=== PATIENT | male | born 1970 | race Caucasian/White ===

== ENCOUNTER 2018-01-07 14:21 | Emergency (ER) | payer SELFPAY ==
[2018-01-07 14:22] VITALS: BP 149/79; PULSE 66; RESP 16; TEMP 36.7; O2SAT 99; BMI 35.3
--- NOTE | 2018-01-07 14:39 | RAD_ITS ---
STUDY: X-RAY CHEST REASON FOR EXAM: Male, 47 years old. Chest pain TECHNIQUE: Single frontal view of the chest. COMPARISON: March 23, 2012 FINDINGS: The lungs are clear and expanded. There is no demonstrated pleural abnormality. Normal size heart. Normal mediastinum and ora. Normal visualized pulmonary arteries. Normal visualized aortic arch and descending thoracic aorta. Normal visualized thoracic spine. Normal visualized ribs, clavicles, and shoulders. There is no demonstrated abnormality of the visualized soft tissue structures of the upper abdomen. RAD/Chest 1 View (Portable) IMPRESSION: Normal x-ray examination of the chest. Electronically Signed: Nando Pacheco MD at 15:49 EST , Service support ,
--- NOTE | 2018-01-07 14:39 | EKG12_ITS ---
Test Reason : CP Blood Pressure : / mmHG Vent. Rate : 055 BPM Atrial Rate : 055 BPM P-R Int : 192 ms QRS Dur : 092 ms QT Int : 414 ms P-R-T Axes : 037 045 045 degrees QTc Int : 396 ms Sinus bradycardia Otherwise normal ECG Confirmed by ZAHIRA URBINA, RALPH ([id number]), scientific publications editor ISRA ESCAMILLA ([id number] on 01/10/2018 3:54:50 PM Referred By: KELLY Confirmed By:RALPH RODRIGES MD
--- NOTE | 2018-01-07 14:49 | ED.VISSUMM ---
- ER Visit Summary Date of Service: 01/07/18 Chief Complaint: [] Left pectoral pain radiating to the right chest on off for 2 days History of Present Illness: The patient is a 47 M [] patient reports really no significant past history he does smoke 2 packs a day and is a family history of heart disease. He indicates he has no history of heart disease. Describes a cramp that occurs to the left chest and then radiates across to the right chest that occurs intermittently nothing triggers at this cramp nothing makes it better or worse it just lasts for a very brief period of time and then resolve spontaneously sometimes he feels if his chest is being pushed from right to left. He has no history of [place] PE DVT he has had no fever no cough no 6 paresthesias bowel bladder habits been normal He does have high cholesterol but he is not on any statins as they made him sick, he had a prior nuclear stress test and other tests with Dr. Mederos he was told his heart is healthy and he has no history of heart disease he is resting company no distress now with no symptoms Physical Examination: [] Blood pressure is 149/79 the rest of his vitals are unremarkable see those reports he is resting comforting the bed he takes his hand and draws her from the left upper pectoral area and feel indicates that there is a cramp sensation in moves to the right upper pectoral area when the symptoms occur they have not occurred now he cannot trigger them now I cannot trigger them by movement or palpation he is in no distress his head neck chest exam unremarkable lungs are clear heart tones are normal palpation the chest wall is unremarkable the abdomen soft nontender he is awake alert moving all 4 pulses are symmetric upper and lower extremities unremarkable without cyanosis clubbing or edema neurologically is normal Test Results: [] Emergency Department Course and Treatment: [] EKG shows a sinus rhythm nothing acute screening labs are obtained and are generally unremarkable see those reports on reevaluation is resting comfortably has no recurrence of his symptoms, I explained that the exact etiology is unclear we discussed inpatient versus outpatient management the patient state he did not wish to be admitted under any circumstance he wanted to go home he preferred outpatient management I explained he would need to follow-up with all of 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 It may contain incorrect words, spelling, and punctuation that were not noted in review of the chart prior to signing ED Disposition - Plan for ED Patient: Chief Complaint: Chest Other Referrals: Kyle Blevins MD [Primary Care Provider] -
[2018-01-07] MEDS: 0.9% Normal Saline 1,000 ML 150 ML IV (14:55)
[2018-01-07] MEDS: Aspirin 81 MG TAB.CHEW 324 MG PO (14:55)
[2018-01-07 14:58] VITALS: O2SAT 100
[2018-01-07 15:27] LABS: Absolute Lymphocyte Count 1.63 X10^3/ul (0.83-4.51); Absolute Neutrophil Count 4.1 X10^3/uL (2.0-7.7); Basophil# 0.02 X10^3/uL; Basophil% 0.3 % (0-1); Eosinophil# 0.11 X10^3/uL; Eosinophils% 1.7 % (0-5); Hematocrit 42.6 % (40-54); Lymphocyte # 1.63 X10^3/ul (4.0); Lymphocyte % 25.3 % (19-41); Mean Corp Hgb Conc 32.9 g/gl (32-36); Mean Corpuscular Hgb 29.5 pg (27.0-32.0); Mean Corpuscular Volume 89.7 fL (80-94); Mean Platelet Vol. 10.6 fl (6.2-12.0); Monocyte# 0.56 X10^3/uL; Monocyte% 8.7 % (0-10); Neutrophil % 63.7 % (47-70); Platelet Count 204 K/mm3 (150-450); RBC Distribution Width CV 13.8 % (11.6-14.6); RBC Distribution Width SD 45.4 fl (35.1-43.9); Red Blood Count 4.75 M/mm3 (4.6-6.2); White Blood Count 6.4 K/mm3 (4.4-11.0)
[2018-01-07 15:30] LABS: POSITIVE COUNT NO; POSITIVE DIFFERENTIAL NO; POSITIVE MORPHOLOGY NO
[2018-01-07 15:33] LABS: Anion Gap 9 (5-15); BUN 12 mg/dL (7-18); BUN/Creat Ratio 13.8 RATIO (10-20); Calcium,Total 8.4 mg/dL (8.5-10.1); Chloride 106 mmol/L (98-107); Creatinine, Serum 0.87 mg/dL (0.70-1.30); EST Glomerular Filtration Rate 99 mL/min (>60); Est Glom Filt Rate - Afr Amer 120 mL/min (>60); Estimated Creatinine Clearance 106.05 ml/min; Glucose 95 mg/dL (74-106); Sodium Level 139 mmol/L (136-145)
--- NOTE | 2018-01-07 16:21 | ED.DEP ---
ED Disposition - Plan for ED Patient: Chief Complaint: Chest Other Instructions: ED Chest Pain Atypical Unkn Cause Referrals: Kyle Blevins MD [Primary Care Provider] - Chin Mederos MD [STAFF PHYSICIAN] -
[2018-01-07 16:33] VITALS: BP 124/68; PULSE 72; RESP 18; O2SAT 99
== END 2018-01-07 16:34 | disposition home or self-care (01) ==
LOC: ED 14:56
PROVIDERS: Emergency Provider Emergency Medicine; Family Provider Family Medicine; PCP Family Medicine
DX: R07.9 Chest pain, unspecified (principal); E78.00 Pure hypercholesterolemia, unspecified; F17.200 Nicotine dependence, unspecified, uncomplicated
CPT/HCPCS: 71045; 80048; 84484; 85025; 93005; 96360; 96361; 99285; J7030; A4216; J2405

== ENCOUNTER → 2018-02-15 06:38 | Outpatient (CLI) | payer SELFPAY ==
[2018-01-18 12:33] VITALS: BMI 34.8
--- NOTE | 2018-02-15 12:50 | STRESSREP ---
Stress Test Report Exercise stress test. 47-year-old lady with a history of atypical chest pain. Stress protocol: Resting EKG demonstrates normal sinus rhythm with a rate of 75 bpm T wave inversion noted in lead III. Resting blood pressure is 146/92 mmHg. The patient exercised according to regular [facility] protocol for total duration of 6 minutes the maximum heart rate attained was 141 bpm which was 82% of maximum predicted heart rate the maximum workload was 7 metabolic equivalents. The patient maintained sinus rhythm throughout the recording. At rest there were no ST or T wave changes noted suggest ischemia peak exercise upsloping ST changes only were noted with normally the criteria for ischemia. The resting blood pressure 146/92 with a peak blood pressure of 210/70 mmHg. No clinical angina was noted. Myocardial perfusion protocol. 14.7 mCi of technetium 99m sestamibi was injected at rest. Patient exercised for total duration of 6 minutes attaining 7 metabolic equivalents at peak exercise 44.6 mCi of technetium 99m sestamibi was injected stress images were obtained stress and rest images were reconstructed and compared in the short axis vertical long horizontal long axis. Gated images were also obtained per Perfusion SPECT analysis: Review of the stress images demonstrate normal uptake of tracer noted in all areas of myocardium. The resting images similarly demonstrate normal uptake of tracer noted in all areas myocardium. No perfusion defect is noted to suggest ischemia and no reversibility is noted. Gated SPECT analysis: The gated ejection fraction is noted to be 62%. Conclusion: Normal exercise myocardial perfusion stress test at a moderate workload. Preserved ejection fraction.
--- OUTSIDE RECORDS SUMMARY | 2018-05-19 07:41 | XMS RPT_ITS ---
:1970 Author Organization OHIP Care Team Providers Name Role Phone Tawanna MENDOZA (ALVAREZ-C) Attending Unavailable SHEREE YOUNGBLOOD (PHARMACEUTICAL SERVICE REPRESENTATIVE) Referring Unavailable Tawanna MENDOZA (PANathanielC) Attending Unavailable Tawanna MENDOZA (PANathanielC) Referring Unavailable Tawanna MENDOZA (PANathanielC) Attending Unavailable PINKY BLEVINS Referring Unavailable Tawanna MENDOZA (PA-C) Attending Unavailable Tawanna MENDOZA (PA-C) Attending Unavailable Nicole, Daniel Attending Unavailable Nicole, [place] Referring Unavailable Pinky Blevins Primary Care Unavailable Nicole, [place] Attending Unavailable Nicole, Daniel Referring Unavailable Casey Tang Attending Unavailable Pinky Blevins Primary Care Unavailable Genesis Greene Attending Unavailable Nicole, Daniel Attending Unavailable Pinky Blevins Referring Unavailable PROBLEMS PROBLEMS DATE TYPE CONDITION / CODE ATTENDING STATUS SOURCE 03/09/2018 Unknown R94.31 - Abnormal Nicole, [place] Active [facility] electro[facility]ogram [facility] [ECG] [EKG] / Hospital R94.31(ICD-10) Repository 03/09/2018 Unknown R07.9 - Chest pain, NicoleJacekDaniel Active [facility] unspecified / Community R07.9(ICD-10) Hospital Repository 01/18/2018 Unknown E78.5 - Nicole, Daniel Active [facility] Hyperlipidemia, Community unspecified / Hospital E78.5(ICD-10) Repository 01/18/2018 Unknown F17.200 - Nicotine Nicole, [place] Active [facility] dependence, Community unspecified, Hospital uncomplicated / Repository F17.200(ICD-10) 12/06/2017 Active Mixed hyperlipidemia / NA Active [facility] E78.2(ICD-10) Clinic [facility] [place] Repository PROCEDURES PROCEDURES No Procedure Records FoundRESULTS RESULTS STRESS REPORT Observed: 02/15/2018 Status: F Source: [place] 12:53 PM [facility] Cardiovascular Services [address] [place] [address] MR#: [id number] Acct: [id number] Name: MARCO ABEL Rep #: [id number] : 1970 47 From: Daniel Rivera MD Primary Care: Pinky Blevins MD Status: REG CLI Ordering Dr: Sex: M C Stress Test Report Exercise stress test. 47-year-old lady with a history of atypical chest pain. Stress protocol: Resting EKG demonstrates normal sinus rhythm with a rate of 75 bpm T wave inversion noted in lead III. Resting blood pressure is 146/92 mmHg. The patient exercised according to regular [facility]os[facility] protocol for total duration of 6 minutes the maximum heart rate attained was 141 bpm which was 82% of maximum predicted heart rate the maximum workload was 7 metabolic equivalents. The patient maintained sinus rhythm throughout the recording. At rest there were no ST or T wave changes noted suggest ischemia peak exercise upsloping ST changes only were noted with normally the criteria for ischemia. The resting blood pressure 146/92 with a peak blood pressure of 210/70 mmHg. No clinical angina was noted. Myocardial perfusion protocol. 14.7 mCi of technetium 99m sestamibi was injected at rest. Patient exercised for total duration of 6 minutes attaining 7 metabolic equivalents at peak exercise 44.6 mCi of technetium 99m sestamibi was injected stress images were obtained stress and rest images were reconstructed and compared in the short axis vertical long horizontal long axis. Gated images were also obtained per Perfusion SPECT analysis: Review of the stress images demonstrate normal uptake of tracer noted in all areas of myocardium. The resting images similarly demonstrate normal uptake of tracer noted in all areas myocardium. No perfusion defect is noted to suggest ischemia and no reversibility is noted. Gated SPECT analysis: The gated ejection fraction is noted to be 62%. Conclusion: Normal exercise myocardial perfusion stress test at a moderate workload. Preserved ejection fraction. 02/15/18 1253 <Electronically signed by Daniel Rivera MD> Date Daniel Rivera MD CC: Daniel Rivera MD; Pinky Blevins MD Date Dictated: 02/15/181249 Date Transcribed: 02/15/181249 Cellar Packer: CO Signed PROGRESS Observed: 01/31/2018 Status: COMPLETED Source: [place] 12:23 PM [facility] [place] REPOSITORY O ID: [id number] Author: Tawanna Feliciano (AsifC) Reji Service: (none) Author Type: Physician Automatic Toe Laster Type: Progress Notes Filed: 01/31/2018 5:29 PM Note Text: 47 year old male with c/o 1. Getting some tension in upper ler shoulder again. Wants to have OMT. 2. Seeing counselor [place] [facility]. Wants to reduce use of buspar. On medication 5+ years. HISTORIES FAMILY HISTORY Problem Relation Age of Onset - other (rheumatoid arthritis [Other]) Mother - Hypertension Father PAST MEDICAL HISTORY Diagnosis Date - Heat stroke 2007 resolved - Hyperlipidemia - Palpitations PAST SURGICAL HISTORY Procedure Laterality Date - PAST SURGICAL HISTORY OF hernia repair, bilateral inguinal Social History Marital status: Spouse name: Years of education: Number of children: Occupational History Occupation Employer Comment unemployed Social History Main Topics Smoking status: Current Every Day Smoker Packs/day: 1.50 Years: 25.00 Smokeless tobacco: Never Used Alcohol use: No Drug use: Yes Comment: hx of occasional marijuana, has stopped since admission to hospital ACTIVE PROBLEM LIST Hyperlipidemia Anxiety Current Outpatient Prescriptions: cholecalciferol, Vitamin D3, (VITAMIN D3) 50,000 unit cap capsule Take 1 capsule by mouth once each week. Disp: 4 capsule Rfl: 3 lovastatin (MEVACOR) 10 mg tablet Take 1 tablet by mouth daily at bedtime. For cholesterol. Disp: 90 tablet Rfl: 0 hydrOXYzine pamoate (VISTARIL) 25 mg capsule Take 1 capsule by mouth three times daily as needed. Disp: 30 capsule Rfl: 1 busPIRone (BUSPAR) 10 mg tablet 1.5 po at noon, 2 po in am and at hs Disp: 165 tablet Rfl: 1 No current facility-administered medications for this visit. There are no preventive care reminders to display for this patient. EXAM: BP 120/70 Pulse 84 Temp (!) 35.6 ?C (96 ?F) (Tympanic) Resp 16 Wt 111.6 kg (246 lb) BMI 35.81 kg/m? Pleasant overweight adult man in no acute distress. Alert and oriented all spheres. Normal affect and cognition. Speech normal. No deficits to learning or comprehension. Skin warm, dry, pink to lips and nailbeds. Normal turgor. Respirations regular and unlabored. Chest CTA. HRRR without murmur or gallop. Chest wall tender left Coracobrachialis. TTPs in upper back/ thoracic Extrem: no clubbing, cyanosis, edema. Extremities are warm and pink with prompt capillary refill. OMT: myofascial release TTPS, HVLA to thoracic segments with relief. ASSESSMENT/PLAN: 1. Somatic dysfunction of spine, thoracic - ICD9: 739.2, ICD10: M99.02 (primary diagnosis) Ice/ moist heat, lineaments, OTC analgesics as needed,. Stretching and posture reviewed. F/U prn 2. Palpitation - ICD9: 785.1, ICD10: R00.2 - HYDROXYZINE PAMOATE 25 MG CAPSULE 3. Anxiety - ICD9: 300.00, ICD10: F41.9 - BUSPIRONE 10 MG TABLET wants to wean: 5mg per week. If worsening with anxiety increase. Has f/u with psychologist. F/u prn FREDERIC Alex Observed: 01/31/2018 Status: COMPLETED Source: [place] 10:20 AM [facility] REPOSITORY [facility] MARCO ABEL ([id number]) 1970 M Date Time Provider Department 01/31/18 10:20 AM Tawanna MENDOZA) [place] During your visit today, we recorded the following information about you: Temperature Pulse Respiration Blood pressure 96 degrees 84/minute 16/minute 120/70 Weight 111.6 kg M Braden Mendoza PA-C 01/31/2018 5:29 PM Signed 47 year old male with c/o 1. Getting some tension in upper ler shoulder again. Wants to have OMT. 2. Seeing counselor [place] [facility]. Wants to reduce use of buspar. On medication 5+ years. HISTORIES FAMILY HISTORY Problem Relation Age of Onset - other (rheumatoid arthritis [Other]) Mother - Hypertension Father PAST MEDICAL HISTORY Diagnosis Date - Heat stroke 2007 resolved - Hyperlipidemia - Palpitations PAST SURGICAL HISTORY Procedure Laterality Date - PAST SURGICAL HISTORY OF hernia repair, bilateral inguinal Social History Marital status: Spouse name: Years of education: Number of children: Occupational History Occupation Employer Comment unemployed Social History Main Topics Smoking status: Current Every Day Smoker Packs/day: 1.50 Years: 25.00 Smokeless tobacco: Never Used Alcohol use: No Drug use: Yes Comment: hx of occasional marijuana, has stopped since admission to hospital ACTIVE PROBLEM LIST Hyperlipidemia Anxiety Current Outpatient Prescriptions: cholecalciferol, Vitamin D3, (VITAMIN D3) 50,000 unit cap capsule Take 1 capsule by mouth once each week. Disp: 4 capsule Rfl: 3 lovastatin (MEVACOR) 10 mg tablet Take 1 tablet by mouth daily at bedtime. For cholesterol. Disp: 90 tablet Rfl: 0 hydrOXYzine pamoate (VISTARIL) 25 mg capsule Take 1 capsule by mouth three times daily as needed. Disp: 30 capsule Rfl: 1 busPIRone (BUSPAR) 10 mg tablet 1.5 po at noon, 2 po in am and at hs Disp: 165 tablet Rfl: 1 No current facility-administered medications for this visit. There are no preventive care reminders to display for this patient. EXAM: BP 120/70 Pulse 84 Temp (!) 35.6 ?C (96 ?F) (Tympanic) Resp 16 Wt 111.6 kg (246 lb) BMI 35.81 kg/m? Pleasant overweight adult man in no acute distress. Alert and oriented all spheres. Normal affect and cognition. Speech normal. No deficits to learning or comprehension. Skin warm, dry, pink to lips and nailbeds. Normal turgor. Respirations regular and unlabored. Chest CTA. HRRR without murmur or gallop. Chest wall tender left Coracobrachialis. TTPs in upper back/ thoracic Extrem: no clubbing, cyanosis, edema. Extremities are warm and pink with prompt capillary refill. OMT: myofascial release TTPS, HVLA to thoracic segments with relief. ASSESSMENT/PLAN: 1. Somatic dysfunction of spine, thoracic - ICD9: 739.2, ICD10: M99.02 (primary diagnosis) Ice/ moist heat, lineaments, OTC analgesics as needed,. Stretching and posture reviewed. F/U prn 2. Palpitation - ICD9: 785.1, ICD10: R00.2 - HYDROXYZINE PAMOATE 25 MG CAPSULE 3. Anxiety - ICD9: 300.00, ICD10: F41.9 - BUSPIRONE 10 MG TABLET wants to wean: 5mg per week. If worsening with anxiety increase. Has f/u with psychologist. F/u prn FREDERIC Alex PA-C 01/31/2018 12:35 PM Signed Decrease Buspar 5mg every 5-7 days. Rest in a comfortable position. Avoid activities or positions which increase pain. Please review the sheet of exercises provided for stretching. No over head lifting, or extended arm pushing or pulling over the next few days. Moist heat generally also helps muscles to relax, You may apply it for 10-15 minutes every few hours if needed. Ice may also help similarly to block pain Call with a progress report over the next few days. Referring Provider: SELF [200] Allergies As of Date: 01/31/2018 Noted Allergy Reaction CITALOPRAM 05/12/2012 14 - Other: See Comments Comments: Chest discomfort PENICILLINS 03/04/2012 11 - Vomiting Date Reviewed: 01/31/2018 Reviewed by: Caty Fagan LPN - Fully Assessed Reason for Visit: Medication Follow-up [270] Back Pain [12] Cmt: upper back left shoulder Primary Visit Diagnosis:Somatic dysfunction of spine, thoracic [M99.02] Other Visit Diagnoses:Palpitation [R00.2] Anxiety [F41.9] Order(s):hydrOXYzine pamoate (VISTARIL) 25 mg capsuleTake 1 capsule by mouth three times daily as needed.Disp: 30 capsuleRfl: 1 busPIRone (BUSPAR) 10 mg tablet1.5 po at noon, 2 po in am and at hsDisp: 165 tabletRfl: 1 Prescriptions as of 01/31/2018 Sig: HYDROXYZINE PAMOATE 25 MG CAP* Take 1 capsule by mouth three* BUSPIRONE 10 MG TABLET 1.5 po at noon, 2 po in am an* CHOLECALCIFEROL (VITAMIN D3) * Take 1 capsule by mouth once * LOVASTATIN 10 MG TABLET Take 1 tablet by mouth daily * Problem List As Of Date 01/31/2018 Noted Resolved Hyperlipidemia [E78.5] INVALID FOR* Impingement syndrome of left shoulder [M75.42] INVALID FOR*04/01/2016 Anxiety [F41.9] INVALID FOR* Other instructions from your clinician: Decrease Buspar 5mg every 5-7 days. Rest in a comfortable position. Avoid activities or positions which increase pain. Please review the sheet of exercises provided for stretching. No over head lifting, or extended arm pushing or pulling over the next few days. Moist heat generally also helps muscles to relax, You may apply it for 10-15 minutes every few hours if needed. Ice may also help similarly to block pain Call with a progress report over the next few days. Prescriptions ordered this encounter Disp Refills Start End HYDROXYZINE PAMOATE 25 MG CAPSULE 30 c* 1 01/31/2018 Route: ORAL Sig: Take 1 capsule by mouth three times daily as needed. BUSPIRONE 10 MG TABLET 165 * 1 01/31/2018 Si.5 po at noon, 2 po in am and at hs Medications Discontinued During This Encounter traZODone (DESYREL) 50 mg tablet 30 t* 1 01/12/2018 01/31/2018 Route: ORAL Sig: Take 1 tablet by mouth daily at bedtime. Patient not taking: Reported on 01/17/2018 Disc: Reason for discontinue is not on file. hydrOXYzine pamoate (VISTARIL) 25 mg* 30 c* 1 12/05/2017 01/31/2018 Route: ORAL Sig: Take 1 capsule by mouth three times daily as needed. Disc: Reason for discontinue is not on file. busPIRone (BUSPAR) 10 mg tablet 165 * 1 12/05/2017 01/31/2018 Si.5 po at noon, 2 po in am and at hs Disc: Reason for discontinue is not on file. Encounter Status:Closed by Tawanna MENDOZA PA-C on 01/31/18 CARDIOLOGY VISIT Observed: 01/18/2018 Status: F Source: [place] REPORT 1:31 PM [facility] [address] [place] [address] OFFICE VISIT Date of Service: 01/18/18 MR#: [id number] Acct: [id number] Name: MARCO ABEL Rep #: [id number] : 1970 Provider: Daniel Rivera MD Age/Sex: 47/M Location: [facility] Status: Signed HPI HPI Chief Complaint: Initial visit Details: MARCO ABEL, is a 47 M who presents to the office today for an initial visit. He presents for evaluation of his cardiac status and to consider a stress test with imaging. He had initially seen my colleague in 2011 after he had presented with chest discomfort. During that visit he had undergone exercise stress testing on the [place] protocol where he exercised 9 minutes and 14 seconds achieving 82% of maximum predicted heart rate and a workload of 10 metabolic equivalents. It was thought based on that test that he did not have any significant cardiac symptomatology he however recommended a cardiac CT angiogram which was performed which demonstrated a normal left main coronary artery left anterior descending artery with mixed soft and calcified eccentric nonobstructive plaque, left anterior descending artery with the same, left circumflex artery with the same and the right coronary artery with soft plaque and a ramus intermedius with mixed soft and calcified eccentric plaque. It was thought that this did not demonstrate significant ischemia. He had some chest discomfort recently which he thought was secondary to a torn muscle. He underwent a regular exercise stress test where he exercised to 8.4 metabolic equivalents but developed hypertensive response to exercise with a blood pressure of 234/90 mmHg. EKG changes were noted though no chest pain was noted. He also attained 81% of the max impacted heart rate. It was therefore determined that he should have this investigated further. Previous echocardiograms performed in 2013 demonstrated preserved ejection fraction of 60%. His physical exam today demonstrates clear lung kessler regular rate and rhythm no pedal edema his blood pressure is under excellent control. Intake Vital Signs01/18/18 Height 5 ft 10 in Intake Visit Reasons: PCP ref'd - needs stressed, CP Allergies citalopram Allergy (Intermediate, Verified 01/18/18 12:34) Unknown Penicillins Adverse Reaction (Verified 01/18/18 12:34) Upset Stomach Medications Hydroxyzine Pamoate 25 mg PO TID PRN PRN 01/07/18 [History Confirmed 01/18/18] buspirone 10 mg tablet 20 mg PO TID 01/13/18 [History Confirmed 01/18/18] cholecalciferol (vitamin D3) 50,000 unit capsule 50,000 unit PO QWEEK 01/18/18 [History Confirmed 01/18/18] [facility] Medical History Nicotine dependence (Chronic) Obesity (Chronic) Hyperlipidemia (Chronic) Anxiety (Chronic) Osmani's node (Chronic) Surgical History History of bilateral inguinal hernia repair (Resolved) Family History Mother Rheumatoid arthritis Father Hypertension Social History Smoking Status: Current every day smoker tobacco type: cigarettes alcohol intake: never substance use type: marijuana ROS Const Const: Negative for fatigue, weakness, difficulty sleeping, frequent falls, excessive sweating or headache(s) Eyes Eyes: Negative for loss of peripheral vision, transient loss of vision, blurry vision, tunnel vision or double vision ENT ENT: Negative for headache(s), dizziness, Nosebleed/epistaxis or balance problems Cardio Chest Pain: Yes Character: tightness (Left shoulder 2 weeks) Palpitations: No Edema: None Muscle aches with walking: None Resp Respiratory: Negative for SOB with activity, SOB at rest, SOB orthopnea\SOB lying down, paroxysmal nocturnal dyspnea or Cough Additional Details: Pulled left shoulder muscle and has had left chest discomfort. States his PCP adjusted his shoulders and he feels better. GI GI: Negative nausea, heartburn, black,tarry stools or vomiting : Negative for hematuria Musc Musc: Negative for balance problems, muscle aches/ myalgia, muscle weakness or joint pain Skin Skin: Negative non-healing lesions, unusual bruising or rash Neuro Neuro: Negative for weakness, frequent falls, headache(s), blurry vision, double vision, dizziness, lightheadedness, orthostatic symptoms, near syncope, syncope or lack of coordination Valerio Hematologic/Lymphatic: Negative for easy bruising or easy bleeding Endo Endo: Negative for fatigue, excessive sweating or increased thirst/drinking Psych Psych: Negative for anxiety or depression Allergy Allergy/Immunology: Negative for hives, Negative for rash Cardiology Exam Const Appearance: cooperative, healthy appearing, well developed, well groomed and no acute distress Nutritional Appearance: well nourished and average body habitus Orientation: alert, awake and oriented x3 Head Head: normal to inspection, normocephalic and atraumatic Ears: hearing grossly normal bilaterally and external ears normal Nose: external nose normal, nasal mucous membranes and turbinates normal, nares normal, septum normal, no nasal discharge Face and Sinus: face symmetric Mouth: oral mucosae normal, tongue normal, oropharynx normal and moist mucous membranes Teeth and gingiva: dentition normal Throat: posterior oropharynx normal, tonsils normal and uvula midline Eyes General: appearance normal, both eyes and all related structures Eyelids: eyelids normal Conjunctivae: conjunctivae normal Pupils: PERRL, normal by confrontation and accommodation normal EOM: EOM intact bilaterally Neck Neck: normal visual inspection, trachea midline and no JVD JVD: +5 Carotids: normal carotid upstroke and bounding pulses Chest Chest inspection: normal inspection of the chest, symmetric chest movement and normal respiratory effort Auscultation: Bilateral: Clear to Auscultation Cardio Palpation: normal PMI Rate: regular rate Rhythm: regular rhythm Heart sounds: S1 normal, S2 normal and normal, physiologic split S2; negative rub, gallop or murmur GI GI: normal to inspection, soft, no hepatosplenomegaly and bowel sounds present Neuro General: alert, awake, oriented x3, no focal sensory deficit, gait normal and moves all extremities Skin Skin: no rashes or lesions noted Extremities Pulses: Normal: Right Femoral Pulse, Left Femoral Pulse, Right Dorsalis Pedis Pulse, Left Dorsalis Pedis Pulse, Right Posterior Tibial Pulse, Left Posterior Tibial Pulse, Right Radial Pulse, Left Radial Pulse Lower Extremity Edema: None: Bilateral Musculoskel Musculoskeletal: No joint tenderness Psych Psychological: normal affect Assessment AND Plan 1. Abnormal ECG during exercise stress test R94.31 Plan He does have evidence of abnormal EKG as well as calcification on his CT angiogram from 5 years ago. Due to his risk factors especially with his nicotine dependence as well as his low HDL I would recommend that we obtain a stress nuclear imaging study. The risk benefits alternatives have been explained to him he understands and agrees to proceed. Depending on these findings further recommendations will then be made. 2. Hyperlipidemia E78.5 Plan He does have a history of hyperlipidemia his most recent lipid profile demonstrated total cholesterol 208 HDL of 25 and LDL of 140. He has been put on a statin which she has not started yet. 3. Nicotine dependence F17.200 Plan He does have a history of nicotine dependence and he has been advised to desist from this habit. Thank you for allowing me to participate in his care please not hesitate to contact me if any issues for he and Plan Detail Follow Up 1 1 Year (jhr) Coding Level of Care Code Off vis,new,level 4 Diagnoses Abnormal ECG during exercise stress test R94.31 Hyperlipidemia E78.5 Nicotine dependence F17.200 Coding Level of Care Code Off vis,new,level 4 Diagnoses Abnormal ECG during exercise stress test R94.31 Hyperlipidemia E78.5 Nicotine dependence F17.200 01/18/18 1331 <Electronically signed by Daniel Rivera MD> Date Daniel Rivera MD Cosigner Signature: Date (if applicable) CC: Pinky Blevins MD PROGRESS Observed: 01/17/2018 Status: COMPLETED Source: [place] 9:25 AM [facility] [place] REPOSITORY HNO ID: [id number] Author: Tawanna Feliciano (Frederic) Reji Service: (none) Author Type: Physician Automatic Toe Laster Type: Progress Notes Filed: 01/17/2018 10:58 AM Note Text: 47 year old male with c/o 1. Back pain completely gone after last OMT. Slept all night. Starting to come back. Wanted to prevent getting worse. 2. Seeing Nicole. Asking for test results to be sent. HISTORIES FAMILY HISTORY Problem Relation Age of Onset - other (rheumatoid arthritis [Other]) Mother - Hypertension Father PAST MEDICAL HISTORY Diagnosis Date - Heat stroke 2007 resolved - Hyperlipidemia - Palpitations PAST SURGICAL HISTORY Procedure Laterality Date - PAST SURGICAL HISTORY OF hernia repair, bilateral inguinal Social History Marital status: Spouse name: Years of education: Number of children: Occupational History Occupation Employer Comment unemployed Social History Main Topics Smoking status: Current Every Day Smoker Packs/day: 1.50 Years: 25.00 Smokeless tobacco: Never Used Alcohol use: No Drug use: Yes Comment: hx of occasional marijuana, has stopped since admission to hospital ACTIVE PROBLEM LIST Hyperlipidemia Anxiety Current Outpatient Prescriptions: cholecalciferol, Vitamin D3, (VITAMIN D3) 50,000 unit cap capsule Take 1 capsule by mouth once each week. Disp: 4 capsule Rfl: 3 lovastatin (MEVACOR) 10 mg tablet Take 1 tablet by mouth daily at bedtime. For cholesterol. Disp: 90 tablet Rfl: 0 hydrOXYzine pamoate (VISTARIL) 25 mg capsule Take 1 capsule by mouth three times daily as needed. Disp: 30 capsule Rfl: 1 busPIRone (BUSPAR) 10 mg tablet 1.5 po at noon, 2 po in am and at hs Disp: 165 tablet Rfl: 1 traZODone (DESYREL) 50 mg tablet Take 1 tablet by mouth daily at bedtime. (Patient not taking: Reported on 01/17/2018 ) Disp: 30 tablet Rfl: 1 No current facility-administered medications for this visit. There are no preventive care reminders to display for this patient. EXAM: BP 118/68 (BP Site: Right Arm, BP Position: Sitting, BP Cuff Size: Large Adult) Pulse 66 Resp 16 Wt 110.2 kg (243 lb) BMI 35.37 kg/m? Pleasant obese man in no acute distress. Alert and oriented all spheres. Normal affect and cognition. Speech normal. No deficits to learning or comprehension. Skin warm, dry, pink to lips and nailbeds. Normal turgor. Respirations regular and unlabored. Chest CTA. HRRR without murmur or gallop.chest wall with trigger points as previous left coracobrachialis. Mild restrictions in thoracic with TTPs Extrem: no clubbing, cyanosis, edema. Extremities are warm and pink with prompt capillary refill. OMT: myofascial release, HVLA to all three thoracic segments. Pain completely alleviated. ASSESSMENT/PLAN: 1. Somatic dysfunction of spine, thoracic - ICD9: 739.2, ICD10: M99.02 (primary diagnosis) F/U prn recurence 2. Abnormal stress ECG with treadmill - ICD9: 794.39, ICD10: R94.[address] Rivera tomorrow. Will transfer records. Tawanna Mendoza PA-C CNOV Observed: 01/17/2018 Status: COMPLETED Source: [place] 9:20 AM [facility] MARCO ABEL ([id number]) 1970 Tawanna Date Time Provider Department 01/17/18 9:20 AM Tawanna MENDOZA) [facility] During your visit today, we recorded the following information about you: Pulse Respiration Blood pressure Weight 66/minute 16/minute 118/68 110.2 kg Tawanna Mendoza PA-C 01/17/2018 10:58 AM Signed 47 year old male with c/o 1. Back pain completely gone after last OMT. Slept all night. Starting to come back. Wanted to prevent getting worse. 2. Seeing Nicole. Asking for test results to be sent. HISTORIES FAMILY HISTORY Problem Relation Age of Onset - other (rheumatoid arthritis [Other]) Mother - Hypertension Father PAST MEDICAL HISTORY Diagnosis Date - Heat stroke 2007 resolved - Hyperlipidemia - Palpitations PAST SURGICAL HISTORY Procedure Laterality Date - PAST SURGICAL HISTORY OF hernia repair, bilateral inguinal Social History Marital status: Spouse name: Years of education: Number of children: Occupational History Occupation Employer Comment unemployed Social History Main Topics Smoking status: Current Every Day Smoker Packs/day: 1.50 Years: 25.00 Smokeless tobacco: Never Used Alcohol use: No Drug use: Yes Comment: hx of occasional marijuana, has stopped since admission to hospital ACTIVE PROBLEM LIST Hyperlipidemia Anxiety Current Outpatient Prescriptions: cholecalciferol, Vitamin D3, (VITAMIN D3) 50,000 unit cap capsule Take 1 capsule by mouth once each week. Disp: 4 capsule Rfl: 3 lovastatin (MEVACOR) 10 mg tablet Take 1 tablet by mouth daily at bedtime. For cholesterol. Disp: 90 tablet Rfl: 0 hydrOXYzine pamoate (VISTARIL) 25 mg capsule Take 1 capsule by mouth three times daily as needed. Disp: 30 capsule Rfl: 1 busPIRone (BUSPAR) 10 mg tablet 1.5 po at noon, 2 po in am and at hs Disp: 165 tablet Rfl: 1 traZODone (DESYREL) 50 mg tablet Take 1 tablet by mouth daily at bedtime. (Patient not taking: Reported on 01/17/2018 ) Disp: 30 tablet Rfl: 1 No current facility-administered medications for this visit. There are no preventive care reminders to display for this patient. EXAM: BP 118/68 (BP Site: Right Arm, BP Position: Sitting, BP Cuff Size: Large Adult) Pulse 66 Resp 16 Wt 110.2 kg (243 lb) BMI 35.37 kg/m? Pleasant obese man in no acute distress. Alert and oriented all spheres. Normal affect and cognition. Speech normal. No deficits to learning or comprehension. Skin warm, dry, pink to lips and nailbeds. Normal turgor. Respirations regular and unlabored. Chest CTA. HRRR without murmur or gallop.chest wall with trigger points as previous left coracobrachialis. Mild restrictions in thoracic with TTPs Extrem: no clubbing, cyanosis, edema. Extremities are warm and pink with prompt capillary refill. OMT: myofascial release, HVLA to all three thoracic segments. Pain completely alleviated. ASSESSMENT/PLAN: 1. Somatic dysfunction of spine, thoracic - ICD9: 739.2, ICD10: M99.02 (primary diagnosis) F/U prn recurence 2. Abnormal stress ECG with treadmill - ICD9: 794.39, ICD10: R94.[address] Rivera tomorrow. Will transfer records. M Braden Mendoza PA-C Referring Provider: SELF [[id number]] Allergies As of Date: 01/17/2018 Noted Allergy Reaction CITALOPRAM 05/12/2012 14 - Other: See Comments Comments: Chest discomfort PENICILLINS 03/04/2012 11 - Vomiting Date Reviewed: 01/17/2018 Reviewed by: Devorah Hamlin Cma - Fully Assessed Reason for Visit: Back Pain [12] Cmt: Upper back pain x 2 days Results [95] Cmt: Discuss stress test results Primary Visit Diagnosis:Somatic dysfunction of spine, thoracic [M99.02] Other Visit Diagnosis:Abnormal stress ECG with treadmill [R94.39] Prescriptions as of 01/17/2018 Sig: CHOLECALCIFEROL (VITAMIN D3) * Take 1 capsule by mouth once * LOVASTATIN 10 MG TABLET Take 1 tablet by mouth daily * HYDROXYZINE PAMOATE 25 MG CAP* Take 1 capsule by mouth three* BUSPIRONE 10 MG TABLET 1.5 po at noon, 2 po in am an* TRAZODONE 50 MG TABLET Take 1 tablet by mouth daily * Patient not taking: Reported on 01/17/2018 Problem List As Of Date 01/17/2018 Noted Resolved Hyperlipidemia [E78.5] INVALID FOR* Impingement syndrome of left shoulder [M75.42] INVALID FOR*04/01/2016 Anxiety [F41.9] INVALID FOR* Encounter Status:Closed by Tawanna MENDOZA PA-C on 01/17/18 PROGRESS Observed: 01/13/2018 Status: COMPLETED Source: [place] 11:54 AM [facility] HNO ID: [id number] Author: Shana Nix (Rcep) Service: (none) Author Type: Evs Tech Type: Progress Notes Filed: 01/13/2018 11:55 AM Note Text: Preliminary report complete; results under cardiac tab. T. TYRON Melissa CNNURSE Observed: 01/13/2018 Status: COMPLETED Source: [place] 11:00 AM [facility] Nurse Visit ([facility]) MARCO ABEL ([id number]) 1970 M Date Time Provider Department 01/13/18 11:00 AM NURSE CARD ADMIN [facility] During your visit today, we recorded the following information about you: TYRON Rapp 01/13/2018 11:55 AM Signed Preliminary report complete; results under cardiac tab. TYRON Rapp Referring Provider: PINKY BLEVINS [[id number]] Allergies As of Date: 01/13/2018 Noted Allergy Reaction CITALOPRAM 05/12/2012 14 - Other: See Comments Comments: Chest discomfort PENICILLINS 03/04/2012 11 - Vomiting Date Reviewed: 01/12/2018 Reviewed by: Caty Fagan LPN - Fully Assessed Primary Visit Diagnosis:Chest pain, unspecified type [R07.9] Prescriptions as of 01/13/2018 Sig: CHOLECALCIFEROL (VITAMIN D3) * Take 1 capsule by mouth once * TRAZODONE 50 MG TABLET Take 1 tablet by mouth daily * LOVASTATIN 10 MG TABLET Take 1 tablet by mouth daily * HYDROXYZINE PAMOATE 25 MG CAP* Take 1 capsule by mouth three* BUSPIRONE 10 MG TABLET 1.5 po at noon, 2 po in am an* Problem List As Of Date 01/13/2018 Noted Resolved Hyperlipidemia [E78.5] INVALID FOR* Impingement syndrome of left shoulder [M75.42] INVALID FOR*04/01/2016 Anxiety [F41.9] INVALID FOR* Encounter Status:Closed by Shana HARDY on 01/13/18 PROGRESS Observed: 01/12/2018 Status: COMPLETED Source: [place] 10:08 AM [facility] REPOSITORY [facility] ID: [id number] Author: Tawanna Feliciano (AsifC) Reji Service: (none) Author Type: Physician Automatic Toe Laster Type: Progress Notes Filed: 01/12/2018 2:08 PM Note Text: 47 year old male with c/o 1. Chest/lungs not improving -seen on Tuesday -Patient reports that the pain in his lungs has been getting worse since Tuesday -He can't sleep at night due to discomfort from the pain -Left pectoral/coracobrachialis muscle tightness feels better -Describes feeling in lungs as burning -Feels like someone punched in sternum -Thinks had pleurisy once; kind of feels like that but pain is constant -Not brought on by meals, Worse is at night -Sometimes has difficulty breathing, especially at night -Only thing that tried: shavonne aspirin, Aleve kind of takes it away (around 1 am take 2 tablets) -Drinking lots of fluids -Has chest pain but not in heart area, no palpitations -Denies: fever, chills, vomiting, diarrhea, constipation, no wheezing, coughing Positive: nausea, dypnea at night HISTORIES FAMILY HISTORY Problem Relation Age of Onset - other (rheumatoid arthritis [Other]) Mother - Hypertension Father PAST MEDICAL HISTORY Diagnosis Date - Heat stroke 2007 resolved - Hyperlipidemia - Palpitations PAST SURGICAL HISTORY Procedure Laterality Date - PAST SURGICAL HISTORY OF hernia repair, bilateral inguinal Social History Marital status: Spouse name: Years of education: Number of children: Occupational History Occupation Employer Comment unemployed Social History Main Topics Smoking status: Current Every Day Smoker Packs/day: 1.50 Years: 25.00 Smokeless tobacco: Never Used Alcohol use: No Drug use: Yes Comment: hx of occasional marijuana, has stopped since admission to hospital ACTIVE PROBLEM LIST Hyperlipidemia Anxiety Current Outpatient Prescriptions: cholecalciferol, Vitamin D3, (VITAMIN D3) 50,000 unit cap capsule Take 1 capsule by mouth once each week. Disp: 4 capsule Rfl: 3 lovastatin (MEVACOR) 10 mg tablet Take 1 tablet by mouth daily at bedtime. For cholesterol. Disp: 90 tablet Rfl: 0 hydrOXYzine pamoate (VISTARIL) 25 mg capsule Take 1 capsule by mouth three times daily as needed. Disp: 30 capsule Rfl: 1 busPIRone (BUSPAR) 10 mg tablet 1.5 po at noon, 2 po in am and at hs Disp: 165 tablet Rfl: 1 No current facility-administered medications for this visit. There are no preventive care reminders to display for this patient. EXAM: BP 134/80 Pulse 60 Temp (!) 35.6 ?C (96 ?F) (Tympanic) Resp 16 Wt 111.1 kg (245 lb) SpO2 97% BMI 35.66 kg/m? General appearance: Well appearing, alert, in no acute distress, well-hydrated, well nourished. Skin: Skin color, texture, turgor normal, no suspicious rashes or lesions Head: Normocephalic, no masses, lesions, tenderness or abnormalities Eyes: Anicteric sclera. Pupils are equally round and reactive to light. Nose/Sinuses:no drainage or sinus tenderness Oropharynx: Lips, mucosa, and tongue normal, teeth and gums normal, oropharynx normal Neck: Supple, no adenopathy; Back: no pain to palpation down spine Lungs: lungs clear to auscultation. No wheezing, rhonchi, rales unlabored on room air Heart: RRR without murmur, gallop, or rubs. No ectopy Abdomen: Abdomen soft, non-tender. Bowel sounds normal. No masses, organomegaly Extremities: No deformities, edema, skin discoloration, clubbing or cyanosis. Good capillary refill. Musculoskeletal: Positive findings: muscle tenderness, alignment? Neuro: Gait normal. Sensation grossly intact. Oriented x 3 OMT: Myofascial release to anterior chest TTPs, HVLA to thoracic segments with complete resolution of pain ASSESSMENT/PLAN: 1. Other chest pain - ICD9: 786.59, ICD10: R07.89 Atypical chest pain, possible etiology include GERD, Costochondritis/chest wall pain, musculoskeletal and bronchitis related (Heavy smoker) - Stress testing; patient has f/u with cardiology scheduled on January 18 recommend proceed with treadmill stress. - STRESS REGULAR W/TREAD - LIPASE BLD 2. Somatic dysfunction of spine, thoracic - ICD9: 739.2, ICD10: M99.02 Follow up michelle Baldwin Student Co-examined, history verified and diagnoses and plan developed together with student. Polo Mendoza PA-C January 12, 2018 2:04 PM. CNOV Observed: 01/12/2018 Status: COMPLETED Source: [place] 9:20 AM [facility] Office Visit ([facility]) MARCO ABEL ([id number]) 1970 M Date Time Provider Department 01/12/18 9:20 AM Tawanna MENDOZA) [facility] During your visit today, we recorded the following information about you: Temperature Pulse Respiration Blood pressure 96 degrees 60/minute 16/minute 134/80 Weight 111.1 kg M Braden Mendoza PA-C 01/12/2018 2:08 PM Signed 47 year old male with c/o 1. Chest/lungs not improving -seen on Tuesday -Patient reports that the pain in his lungs has been getting worse since Tuesday -He can't sleep at night due to discomfort from the pain -Left pectoral/coracobrachialis muscle tightness feels better -Describes feeling in lungs as burning -Feels like someone punched in sternum -Thinks had pleurisy once; kind of feels like that but pain is constant -Not brought on by meals, Worse is at night -Sometimes has difficulty breathing, especially at night -Only thing that tried: shavonne aspirin, Aleve kind of takes it away (around 1 am take 2 tablets) -Drinking lots of fluids -Has chest pain but not in heart area, no palpitations -Denies: fever, chills, vomiting, diarrhea, constipation, no wheezing, coughing Positive: nausea, dypnea at night HISTORIES FAMILY HISTORY Problem Relation Age of Onset - other (rheumatoid arthritis [Other]) Mother - Hypertension Father PAST MEDICAL HISTORY Diagnosis Date - Heat stroke 2007 resolved - Hyperlipidemia - Palpitations PAST SURGICAL HISTORY Procedure Laterality Date - PAST SURGICAL HISTORY OF hernia repair, bilateral inguinal Social History Marital status: Spouse name: Years of education: Number of children: Occupational History Occupation Employer Comment unemployed Social History Main Topics Smoking status: Current Every Day Smoker Packs/day: 1.50 Years: 25.00 Smokeless tobacco: Never Used Alcohol use: No Drug use: Yes Comment: hx of occasional marijuana, has stopped since admission to hospital ACTIVE PROBLEM LIST Hyperlipidemia Anxiety Current Outpatient Prescriptions: cholecalciferol, Vitamin D3, (VITAMIN D3) 50,000 unit cap capsule Take 1 capsule by mouth once each week. Disp: 4 capsule Rfl: 3 lovastatin (MEVACOR) 10 mg tablet Take 1 tablet by mouth daily at bedtime. For cholesterol. Disp: 90 tablet Rfl: 0 hydrOXYzine pamoate (VISTARIL) 25 mg capsule Take 1 capsule by mouth three times daily as needed. Disp: 30 capsule Rfl: 1 busPIRone (BUSPAR) 10 mg tablet 1.5 po at noon, 2 po in am and at hs Disp: 165 tablet Rfl: 1 No current facility-administered medications for this visit. There are no preventive care reminders to display for this patient. EXAM: BP 134/80 Pulse 60 Temp (!) 35.6 ?C (96 ?F) (Tympanic) Resp 16 Wt 111.1 kg (245 lb) SpO2 97% BMI 35.66 kg/m? General appearance: Well appearing, alert, in no acute distress, well-hydrated, well nourished. Skin: Skin color, texture, turgor normal, no suspicious rashes or lesions Head: Normocephalic, no masses, lesions, tenderness or abnormalities Eyes: Anicteric sclera. Pupils are equally round and reactive to light. Nose/Sinuses:no drainage or sinus tenderness Oropharynx: Lips, mucosa, and tongue normal, teeth and gums normal, oropharynx normal Neck: Supple, no adenopathy; Back: no pain to palpation down spine Lungs: lungs clear to auscultation. No wheezing, rhonchi, rales unlabored on room air Heart: RRR without murmur, gallop, or rubs. No ectopy Abdomen: Abdomen soft, non-tender. Bowel sounds normal. No masses, organomegaly Extremities: No deformities, edema, skin discoloration, clubbing or cyanosis. Good capillary refill. Musculoskeletal: Positive findings: muscle tenderness, alignment? Neuro: Gait normal. Sensation grossly intact. Oriented x 3 OMT: Myofascial release to anterior chest TTPs, HVLA to thoracic segments with complete resolution of pain ASSESSMENT/PLAN: 1. Other chest pain - ICD9: 786.59, ICD10: R07.89 Atypical chest pain, possible etiology include GERD, Costochondritis/chest wall pain, musculoskeletal and bronchitis related (Heavy smoker) - Stress testing; patient has f/u with cardiology scheduled on January 18 recommend proceed with treadmill stress. - STRESS REGULAR W/TREAD - LIPASE BLD 2. Somatic dysfunction of spine, thoracic - ICD9: 739.2, ICD10: M99.02 Follow up prn [place] Baldwin Student Co-examined, history verified and diagnoses and plan developed together with student. Polo Mendoza PA-C January 12, 2018 2:04 PM. Referring Provider: SELF [[id number]] Allergies As of Date: 01/12/2018 Noted Allergy Reaction CITALOPRAM 05/12/2012 14 - Other: See Comments Comments: Chest discomfort PENICILLINS 03/04/2012 11 - Vomiting Date Reviewed: 01/12/2018 Reviewed by: Caty Fagan LPN - Fully Assessed Reason for Visit: chest discomfort [Other] Cmt: Was seen in ER on Sun and in office on Tu. describes it as burning and feeling like you were punched in chest feels like symptoms are getting worse Reason For Visit History Recorded Primary Visit Diagnosis:Other chest pain [R07.89] Other Visit Diagnosis:Somatic dysfunction of spine, thoracic [M99.02] Order(s):STRESS REGULAR W/TREAD [[id number]] Order #: [id number]: 1 FUTURE STRESS REGULAR W/TREAD [[id number]] Order #: [id number]: 1 LIPASE BLD [SQLIPA] Order #: [id number] FUTURE traZODone (DESYREL) 50 mg tabletTake 1 tablet by mouth daily at bedtime.Disp: 30 tabletRfl: 1 Prescriptions as of 01/12/2018 Sig: CHOLECALCIFEROL (VITAMIN D3) * Take 1 capsule by mouth once * LOVASTATIN 10 MG TABLET Take 1 tablet by mouth daily * HYDROXYZINE PAMOATE 25 MG CAP* Take 1 capsule by mouth three* BUSPIRONE 10 MG TABLET 1.5 po at noon, 2 po in am an* TRAZODONE 50 MG TABLET Take 1 tablet by mouth daily * Problem List As Of Date 01/12/2018 Noted Resolved Hyperlipidemia [E78.5] INVALID FOR* Impingement syndrome of left shoulder [M75.42] INVALID FOR*04/01/2016 Anxiety [F41.9] INVALID FOR* Prescriptions ordered this encounter Disp Refills Start End TRAZODONE 50 MG TABLET 30 t* 1 01/12/2018 Route: ORAL Sig: Take 1 tablet by mouth daily at bedtime. Disposition: Return in about 2 weeks (around 01/26/2018). Follow-up and Disposition History Recorded Encounter Status:Closed by Tawanna MENDOZA PA-C on 01/12/18 AST Collected: 01/11/2018 Status: F Source: [facility] 9:25 AM [facility] TYPE CODE TESTS RESULT OUT OF RANGE REFERENCE UNITS LAB AST 14-40 U/L AST 29 Performed By: #### AST, CK, VITD #### [facility] Monitor [employer] [address] [place], [place] [address] CK Collected: 01/11/2018 Status: F Source: [facility] 9:25 AM [facility] REPOSITORY TYPE CODE TESTS RESULT OUT OF RANGE REFERENCE UNITS LAB CK 51-298 U/L CK 175 Performed By: #### AST, CK, VITD #### [facility] [employer] [address] [place], [place] [address] VITAMIN D 25 HYDROXY Collected: 01/11/2018 Status: F Source: [place] 9:25 AM [facility] REPOSITORY TYPE CODE TESTS RESULT OUT OF REFERENCE UNITS RANGE LAB VITD 31.0-80.0 ng/mL Low Vitamin D 25 22.9 Hydroxy Result Comment: Classification of 25 [place] Vitamin D status: Insufficiency/Moderate Deficiency: < or = 30 ng/mL Sufficiency/Optimal Levels: 31 to 80 ng/mL Toxicity: > 100 ng/mL Test performed by chemiluminescent immunoassay. Performed By: #### AST, CK, VITD #### [facility] [address] [place], [place] [address] 12 LEAD ELECTROCARDIOGRAM Observed: 01/10/2018 Status: F Source: [place] 3:55 PM [facility] Cardiovascular Services [address] [place] [id number] 12 Lead EKG 01/07/18 1436 MR#: [id number] Acct: [id number] Name: MARCO ABEL Rep #: [id number] : 1970 47 From: Daniel Rivera MD Attending Dr: Status: DEP ER Ordering Dr: Casey Tang MD Date: 01/07/18 Location: ED Sex: M C Admitted: Test Reason : CP Blood Pressure : / mmHG Vent. Rate : 055 BPM Atrial Rate : 055 BPM P-R Int : 192 ms QRS Dur : 092 ms QT Int : 414 ms P-R-T Axes : 037 045 045 degrees QTc Int : 396 ms Sinus bradycardia Otherwise normal ECG Confirmed by NICOLE URBINA, DANIEL ([id number]), food expeditor ISRA ESCAMILLA ([id number]) on 01/10/2018 3:54:50 PM Referred By: KELLY Confirmed By:DANIEL RIVERA MD 01/10/18 1554 Date Daniel Rivera MD CC: MD Headley Jwayyed; Pinky Blevins MD Signed PROGRESS Observed: 01/10/2018 Status: COMPLETED Source: [place] 9:56 AM [facility] [place] REPOSITORY [facility] ID: [id number] Author: Tawanna Feliciano (PaNathanielC) Reji Service: (none) Author Type: Physician Automatic Toe Laster Type: Progress Notes Filed: 01/10/2018 1:52 PM Note Text: 47 year old male with c/o chest problems/ er follow-up 01/07/18 [facility] 1. ER follow-up -2 weeks ago, real tight in shoulder, chest, felt like being squeezed -arms numb from shoulder to elbow, lungs burning (like when run too far) -went to ER, EKG NSR with ischemic changes, CXR normal, hydration. CBC, CMP WNL including troponin 0.028 -comes and goes, mainly on the left side of chest, last night started on 11:30-12 and lasted until ; strip steak and perogies for dinner -starts on sides and then moves across collar bone to base of the throat -gets a lot of rib cramps -worse at night or first thing in the morning or it comes out of nowhere -still smoking, trying to wean down -Taking Shavonne aspirin and Aleve for past week: thinks Aleve does a little better; light massage helped -Thinks heart disease and problems run on both sides of family 2. Hyperlipidemia -Not on medication -Reported that had muscle aches while on statin Component Latest Ref Rng AND Units 04/02/2016 02/09/2017 12/06/2017 Triglyceride <150 mg/dL 178 (H) 163 (H) 215 (H) Cholesterol, Total <200 mg/dL 198 215 (H) 208 (H) HDL Cholesterol >39 mg/dL 21 (L) 27 (L) 25 (L) VLDL Cholesterol <30 mg/dL 36 33 43 (H) LDL Cholesterol <100 mg/dL 141 (H) 155 (H) 140 (H) Fasting Time hrs 12 1 14 TC:HDL Ratio <5.10 9.43 (H) 7.96 (H) 8.32 (H) LDL:HDL Ratio <2.54 6.71 (H) 5.74 (H) 5.60 (H) Non HDL Cholesterol <130 mg/dL 177 (H) 188 (H) 183 (H) 3. Rash -not itchy or bothersome -right axilla, noticed when putting on deodorant 4. Smoking -Patient smokes 1.5- 2 PPD, has decreased to 0.5 PPD -Hx of marijuana use ROS Review of Systems: GENERAL: No weight loss, malaise or fevers. HEENT: Negative for frequent or significant headaches, No changes in hearing or vision, no nose bleeds or other nasal problems NECK: Negative for goiter, pain or significant neck swelling, Positive for pressure' almost like heart burn RESPIRATORY: Positive: some wheezing, Denies dyspnea, SOB CARDIOVASCULAR: Negative for chest pain, leg swelling, hypertension, CHF or palpitations GI: No nausea, vomiting, or diarrhea and No heartburn or reflux symptoms : No history of dysuria, frequency or incontinence MUSCULOSKELETAL: Muscle pain- anterior, concentration across left side SKIN: Positive for rash: left axilla PSYCH: Positive for sleep disturbance: from pain NEURO: No history of headaches, syncope, paralysis, seizures or tremors and Positive numbness/tingling bilateral arms Component Latest Ref Rng AND Units 02/09/2017 03/14/2017 12/06/2017 Protein, Total 6.3 - 8.0 g/dL 7.1 7.2 6.8 Albumin 3.9 - 4.9 g/dL 4.1 3.9 4.1 Calcium 8.5 - 10.2 mg/dL 9.0 9.2 9.1 Bilirubin, Total 0.2 - 1.3 mg/dL 0.2 0.2 <0.2 (L) Alkaline Phosphatase 38 - 113 U/L 74 81 80 AST 14 - 40 U/L 31 24 25 Glucose 74 - 99 mg/dL 105 (H) 94 106 (H) BUN 9 - 24 mg/dL 16 14 14 Creatinine 0.73 - 1.22 mg/dL 1.02 0.99 0.98 Sodium 136 - 144 mmol/L 138 141 140 Potassium 3.7 - 5.1 mmol/L 4.7 4.6 4.4 Chloride 97 - 105 mmol/L 103 104 105 CO2 22 - 30 mmol/L 21 (L) 24 21 (L) Anion Gap 9 - 18 mmol/L 14 13 14 ALT 10 - 54 U/L 51 47 41 eGFR- >60 >60 >60 eGFR-All Other Races . >60 >60 >60 HISTORIES Cardiac Hx: 02/16/12: Nuclear stress test, EKG with stress: sinus tachycardia, rare PVC, EF 61%; Interpreting physician: Dr. Parra 02/21/12: 48 hr Holter monitor: sinus rhythm with occasional premature atrial complexes; Interpreting physician: Dr. Rivera FAMILY HISTORY Problem Relation Age of Onset - other (rheumatoid arthritis [Other]) Mother - Hypertension Father PAST MEDICAL HISTORY Diagnosis Date - Heat stroke 2007 resolved - Hyperlipidemia - Palpitations PAST SURGICAL HISTORY Procedure Laterality Date - PAST SURGICAL HISTORY OF hernia repair, bilateral inguinal Social History Marital status: Spouse name: Years of education: Number of children: Occupational History Occupation Employer Comment unemployed Social History Main Topics Smoking status: Current Every Day Smoker Packs/day: 1.50 Years: 25.00 Smokeless tobacco: Never Used Alcohol use: No Drug use: Yes Comment: hx of occasional marijuana, has stopped since admission to hospital ACTIVE PROBLEM LIST Hyperlipidemia Anxiety Current Outpatient Prescriptions: hydrOXYzine pamoate (VISTARIL) 25 mg capsule Take 1 capsule by mouth three times daily as needed. Disp: 30 capsule Rfl: 1 busPIRone (BUSPAR) 10 mg tablet 1.5 po at noon, 2 po in am and at hs Disp: 165 tablet Rfl: 1 No current facility-administered medications for this visit. There are no preventive care reminders to display for this patient. EXAM: BP 120/78 (BP Site: Left Arm, BP Position: Sitting, BP Cuff Size: Large Adult) Pulse 60 Temp (!) 35.5 ?C (95.9 ?F) (Tympanic) Resp 16 Wt 110.7 kg (244 lb) BMI 35.52 kg/m? Pleasant adult male in no acute distress. Mildly diaphoretic. Alert and oriented all spheres. Normal affect and cognition. Speech normal. No deficits to learning or comprehension. Skin warm, diaphoretic, pink to lips and nailbeds. Normal turgor. HEENT: no tenderness to palpation of frontal and maxillary sinus, no erythema of nasal mucosa, oropharynx clear, TMs pearly perea. No cervical lymphadenopathy. Respiratory :Respirations regular and unlabored. Lung clear to auscultation bilaterally, no wheezing or rhonchi Cardiac: RRR, S1 and S2 appreciated. No murmurs, No tenderness to palpation of the precordium Abdomen: soft, distended, non-tender to palpation. Negative No sign. Bowl sounds appreciated in all 4 quadrants. Extrem: no clubbing, cyanosis, edema. Extremities are warm and pink with prompt capillary refill. Patient could appreciated light touch and sensation. MSK: muscle strength 5/5 in upper and lower extremities bilaterally. Tenderness to palpation of pectoral muscle inferior to clavicle on left side of anterior thorax. No tenderness appreciated on palpation of the right pectoral muscle. ASSESSMENT/PLAN: 1. Chest pain, unspecified type - ICD9: 786.50, ICD10: R07.9 (primary diagnosis) Chest pain of unclear etiology, patient with significant risk factor(s) of family history of heart disease, Hyperlipidemia and smoking - Referral to Cardiology - CONSULT TO CARDIOLOGY 2. Mixed hyperlipidemia - ICD9: 272.2, ICD10: E78.2 - poor control - Continue current medication. - Check fasting lipid panel, vit D - CONSULT TO CARDIOLOGY 3. Anxiety - ICD9: 300.00, ICD10: F41.9 - CONSULT TO CARDIOLOGY - CONSULT TO PSYCHOLOGY, Patient open to CBT [place] [facility] Student F/u 3 months Advised in lovastatin trial. labs in 3 months Declined treatment for rash Co-examined, history verified and diagnoses and plan developed together with student. Polo Mendoza PA-C January 10, 2018 1:52 PM. CNOV Observed: 01/10/2018 Status: COMPLETED Source: SEWARD 9:20 AM [facility] REPOSITORY Office Visit (FAMPWS) MARCO ABEL ([id number]) 1970 M Date Time Provider Department 01/10/18 9:20 Tawanna REYEZ) RUFUSPWS During your visit today, we recorded the following information about you: Temperature Pulse Respiration Blood pressure 95.9 degrees 60/minute 16/minute 120/78 Weight 110.7 kg M Braden Mendoza PA-C 01/10/2018 1:52 PM Signed 47 year old male with c/o chest problems/ er follow-up 01/07/18 [facility] 1. ER follow-up -2 weeks ago, real tight in shoulder, chest, felt like being squeezed -arms numb from shoulder to elbow, lungs burning (like when run too far) -went to ER, EKG NSR with ischemic changes, CXR normal, hydration. CBC, CMP WNL including troponin 0.028 -comes and goes, mainly on the left side of chest, last night started on 11:30-12 and lasted until ; strip steak and perogies for dinner -starts on sides and then moves across collar bone to base of the throat -gets a lot of rib cramps -worse at night or first thing in the morning or it comes out of nowhere -still smoking, trying to wean down -Taking Shavonne aspirin and Aleve for past week: thinks Aleve does a little better; light massage helped -Thinks heart disease and problems run on both sides of family 2. Hyperlipidemia -Not on medication -Reported that had muscle aches while on statin Component Latest Ref Rng AND Units 04/02/2016 02/09/2017 12/06/2017 Triglyceride <150 mg/dL 178 (H) 163 (H) 215 (H) Cholesterol, Total <200 mg/dL 198 215 (H) 208 (H) HDL Cholesterol >39 mg/dL 21 (L) 27 (L) 25 (L) VLDL Cholesterol <30 mg/dL 36 33 43 (H) LDL Cholesterol <100 mg/dL 141 (H) 155 (H) 140 (H) Fasting Time hrs 12 1 14 TC:HDL Ratio <5.10 9.43 (H) 7.96 (H) 8.32 (H) LDL:HDL Ratio <2.54 6.71 (H) 5.74 (H) 5.60 (H) Non HDL Cholesterol <130 mg/dL 177 (H) 188 (H) 183 (H) 3. Rash -not itchy or bothersome -right axilla, noticed when putting on deodorant 4. Smoking -Patient smokes 1.5- 2 PPD, has decreased to 0.5 PPD -Hx of marijuana use ROS Review of Systems: GENERAL: No weight loss, malaise or fevers. HEENT: Negative for frequent or significant headaches, No changes in hearing or vision, no nose bleeds or other nasal problems NECK: Negative for goiter, pain or significant neck swelling, Positive for pressure' almost like heart burn RESPIRATORY: Positive: some wheezing, Denies dyspnea, SOB CARDIOVASCULAR: Negative for chest pain, leg swelling, hypertension, CHF or palpitations GI: No nausea, vomiting, or diarrhea and No heartburn or reflux symptoms : No history of dysuria, frequency or incontinence MUSCULOSKELETAL: Muscle pain- anterior, concentration across left side SKIN: Positive for rash: left axilla PSYCH: Positive for sleep disturbance: from pain NEURO: No history of headaches, syncope, paralysis, seizures or tremors and Positive numbness/tingling bilateral arms Component Latest Ref Rng AND Units 02/09/2017 03/14/2017 12/06/2017 Protein, Total 6.3 - 8.0 g/dL 7.1 7.2 6.8 Albumin 3.9 - 4.9 g/dL 4.1 3.9 4.1 Calcium 8.5 - 10.2 mg/dL 9.0 9.2 9.1 Bilirubin, Total 0.2 - 1.3 mg/dL 0.2 0.2 <0.2 (L) Alkaline Phosphatase 38 - 113 U/L 74 81 80 AST 14 - 40 U/L 31 24 25 Glucose 74 - 99 mg/dL 105 (H) 94 106 (H) BUN 9 - 24 mg/dL 16 14 14 Creatinine 0.73 - 1.22 mg/dL 1.02 0.99 0.98 Sodium 136 - 144 mmol/L 138 141 140 Potassium 3.7 - 5.1 mmol/L 4.7 4.6 4.4 Chloride 97 - 105 mmol/L 103 104 105 CO2 22 - 30 mmol/L 21 (L) 24 21 (L) Anion Gap 9 - 18 mmol/L 14 13 14 ALT 10 - 54 U/L 51 47 41 eGFR- >60 >60 >60 eGFR-All Other Races . >60 >60 >60 HISTORIES Cardiac Hx: 02/16/12: Nuclear stress test, EKG with stress: sinus tachycardia, rare PVC, EF 61%; Interpreting physician: Dr. Parra 02/21/12: 48 hr Holter monitor: sinus rhythm with occasional premature atrial complexes; Interpreting physician: Dr. Rivera FAMILY HISTORY Problem Relation Age of Onset - other (rheumatoid arthritis [Other]) Mother - Hypertension Father PAST MEDICAL HISTORY Diagnosis Date - Heat stroke 2007 resolved - Hyperlipidemia - Palpitations PAST SURGICAL HISTORY Procedure Laterality Date - PAST SURGICAL HISTORY OF hernia repair, bilateral inguinal Social History Marital status: Spouse name: Years of education: Number of children: Occupational History Occupation Employer Comment unemployed Social History Main Topics Smoking status: Current Every Day Smoker Packs/day: 1.50 Years: 25.00 Smokeless tobacco: Never Used Alcohol use: No Drug use: Yes Comment: hx of occasional marijuana, has stopped since admission to hospital ACTIVE PROBLEM LIST Hyperlipidemia Anxiety Current Outpatient Prescriptions: hydrOXYzine pamoate (VISTARIL) 25 mg capsule Take 1 capsule by mouth three times daily as needed. Disp: 30 capsule Rfl: 1 busPIRone (BUSPAR) 10 mg tablet 1.5 po at noon, 2 po in am and at hs Disp: 165 tablet Rfl: 1 No current facility-administered medications for this visit. There are no preventive care reminders to display for this patient. EXAM: BP 120/78 (BP Site: Left Arm, BP Position: Sitting, BP Cuff Size: Large Adult) Pulse 60 Temp (!) 35.5 ?C (95.9 ?F) (Tympanic) Resp 16 Wt 110.7 kg (244 lb) BMI 35.52 kg/m? Pleasant adult male in no acute distress. Mildly diaphoretic. Alert and oriented all spheres. Normal affect and cognition. Speech normal. No deficits to learning or comprehension. Skin warm, diaphoretic, pink to lips and nailbeds. Normal turgor. HEENT: no tenderness to palpation of frontal and maxillary sinus, no erythema of nasal mucosa, oropharynx clear, TMs pearly perea. No cervical lymphadenopathy. Respiratory :Respirations regular and unlabored. Lung clear to auscultation bilaterally, no wheezing or rhonchi Cardiac: RRR, S1 and S2 appreciated. No murmurs, No tenderness to palpation of the precordium Abdomen: soft, distended, non-tender to palpation. Negative No sign. Bowl sounds appreciated in all 4 quadrants. Extrem: no clubbing, cyanosis, edema. Extremities are warm and pink with prompt capillary refill. Patient could appreciated light touch and sensation. MSK: muscle strength 5/5 in upper and lower extremities bilaterally. Tenderness to palpation of pectoral muscle inferior to clavicle on left side of anterior thorax. No tenderness appreciated on palpation of the right pectoral muscle. ASSESSMENT/PLAN: 1. Chest pain, unspecified type - ICD9: 786.50, ICD10: R07.9 (primary diagnosis) Chest pain of unclear etiology, patient with significant risk factor(s) of family history of heart disease, Hyperlipidemia and smoking - Referral to Cardiology - CONSULT TO CARDIOLOGY 2. Mixed hyperlipidemia - ICD9: 272.2, ICD10: E78.2 - poor control - Continue current medication. - Check fasting lipid panel, vit D - CONSULT TO CARDIOLOGY 3. Anxiety - ICD9: 300.00, ICD10: F41.9 - CONSULT TO CARDIOLOGY - CONSULT TO PSYCHOLOGY, Patient open to CBT [place] Student F/u 3 months Advised in lovastatin trial. labs in 3 months Declined treatment for rash Co-examined, history verified and diagnoses and plan developed together with student. Polo M Braden Mendoza PA-C January 10, 2018 1:52 PM. Referring Provider: SELF [200] Allergies As of Date: 01/10/2018 Noted Allergy Reaction CITALOPRAM 05/12/2012 14 - Other: See Comments Comments: Chest discomfort PENICILLINS 03/04/2012 11 - Vomiting Date Reviewed: 01/10/2018 Reviewed by: Denisha Green LPN - Fully Assessed Reason for Visit: ER F/U [41] Cmt: Seen at [facility] ER 01/07/18 for chest pain, muscle tightness AND numbness in upper arms Primary Visit Diagnosis:Chest pain, unspecified type [R07.9] Other Visit Diagnoses:Mixed hyperlipidemia [E78.2] Anxiety [F41.9] Order(s):CONSULT TO CARDIOLOGY [9004] Order #: [id number]: 1 CONSULT TO PSYCHOLOGY [9036] Order #: [id number]: 1 lovastatin (MEVACOR) 10 mg tabletTake 1 tablet by mouth daily at bedtime. For cholesterol.Disp: 90 tabletRfl: 0 CK CREATINE KINASE [SQCK] Order #: [id number] FUTURE AST/SGOT BLD [SQAST] Order #: [id number] FUTURE VITAMIN D 25 HYDROXY [SQVITD] Order #: [id number] FUTURE Prescriptions as of 01/10/2018 Sig: HYDROXYZINE PAMOATE 25 MG CAP* Take 1 capsule by mouth three* BUSPIRONE 10 MG TABLET 1.5 po at noon, 2 po in am an* LOVASTATIN 10 MG TABLET Take 1 tablet by mouth daily * Problem List As Of Date 01/10/2018 Noted Resolved Hyperlipidemia [E78.5] INVALID FOR* Impingement syndrome of left shoulder [M75.42] INVALID FOR*04/01/2016 Anxiety [F41.9] INVALID FOR* Prescriptions ordered this encounter Disp Refills Start End LOVASTATIN 10 MG TABLET 90 t* 0 01/10/2018 Route: ORAL Sig: Take 1 tablet by mouth daily at bedtime. For cholesterol. Encounter Status:Closed by Tawanna MENDOZA PA-C on 01/10/18 EMERGENCY DEPARTMENT Observed: 01/07/2018 Status: F Source: [place]ASSET SUMMARY 4:44 PM [facility] Medical Records Department [address] [place] [id number] Emergency Department Summary 01/07/18 1449 MR#: [id number] Acct: [id number] Name: MARCO ABEL Rep #: [id number] : 1970 47 From: Casey Tang MD PCP: Pinky Blevins MD Status: DEP ER - ER Visit Summary Date of Service: 01/07/18 Chief Complaint: [] Left pectoral pain radiating to the right chest on off for 2 days History of Present Illness: The patient is a 47 M [] patient reports really no significant past history he does smoke 2 packs a day and is a family history of heart disease. He indicates he has no history of heart disease. Describes a cramp that occurs to the left chest and then radiates across to the right chest that occurs intermittently nothing triggers at this cramp nothing makes it better or worse it just lasts for a very brief period of time and then resolve spontaneously sometimes he feels if his chest is being pushed from right to left. He has no history of NE PE DVT he has had no fever no cough no 6 paresthesias bowel bladder habits been normal He does have high cholesterol but he is not on any statins as they made him sick, he had a prior nuclear stress test and other tests with Dr. Mederos he was told his heart is healthy and he has no history of heart disease he is resting company no distress now with no symptoms Physical Examination: [] Blood pressure is 149/79 the rest of his vitals are unremarkable see those reports he is resting comforting the bed he takes his hand and draws her from the left upper pectoral area and feel indicates that there is a cramp sensation in moves to the right upper pectoral area when the symptoms occur they have not occurred now he cannot trigger them now I cannot trigger them by movement or palpation he is in no distress his head neck chest exam unremarkable lungs are clear heart tones are normal palpation the chest wall is unremarkable the abdomen soft nontender he is awake alert moving all 4 pulses are symmetric upper and lower extremities unremarkable without cyanosis clubbing or edema neurologically is normal Test Results: [] Emergency Department Course and Treatment: [] EKG shows a sinus rhythm nothing acute screening labs are obtained and are generally unremarkable see those reports on reevaluation is resting comfortably has no recurrence of his symptoms, I explained that the exact etiology is unclear we discussed inpatient versus outpatient management the patient state he did not wish to be admitted under any circumstance he wanted to go home he preferred outpatient management I explained he would need to follow-up with all of his outpatient providers including his lab clerk he will take 2 baby aspirin a day and return for change in symptoms and consider trying to stop smoking and to discuss this with his physicians and he will do so Treatment Plan: [] Disposition: [] Home stable declined admission Impression: [] Nonspecific chest pain etiology unclear This note was generated with [employer] dictation software. It may contain incorrect words, spelling, and punctuation that were not noted in review of the chart prior to signing ED Disposition - Plan for ED Patient: Chief Complaint: Chest Other Referrals: Pinky Blevins MD [Primary Care Provider] - What to do if you have Problems For any increased pain, shortness of breath, bleeding, nausea or vomiting, chest pain, or any unexpected problems, contact your Primary Care Provider. Call [facility] ([phone]) or report to the closest Emergency Room. Call 911 if necessary. 01/07/18 5850 <Electronically signed by Casey Tang MD> Date Casey Tang MD Cosigner Signature (If Indicated): Date CC: Pinky Blevins MD DISCHARGE INSTRUCTION Observed: 01/07/2018 Status: F Source: SINDY 4:22 PM [facility] Medical Records Department [address] [place] [address] Discharge Instruction 01/07/18 1621 MR#: [id number] Acct: [id number] Name: MARCO ABEL Rep #: [id number] : 1970 47 From: Casey Tang MD PCP: Pinky Blevins MD Status: REG ER ED Disposition - Plan for ED Patient: Chief Complaint: Chest Other Instructions: ED Chest Pain Atypical Unkn Cause Referrals: Pinky Blevins MD [Primary Care Provider] - Chin Mederos MD [STAFF PHYSICIAN] - What to do if you have Problems For any increased pain, shortness of breath, bleeding, nausea or vomiting, chest pain, or any unexpected problems, contact your Primary Care Provider. Call [facility] ([phone]) or report to the closest Emergency Room. Call 911 if necessary. 01/07/18 1622 <Electronically signed by Casey Tang MD> Date Casey Garciaigner Signature (If Indicated): Date CC: Pinky Blevins MD CBC W/DIFF, AUTOMATED Collected: 01/07/2018 Status: F Source: SINDY 2:55 PM [facility] TYPE CODE TESTS RESULT OUT OF RANGE REFERENCE UNITS LAB L100.1000 4.4-11.0 K/mm3 Normal WBC 6.4 LAB L100.1200 4.6-6.2 M/mm3 Normal RBC 4.75 LAB L100.1300 13.0-16.5 g/dl Normal HGB 14.0 LAB L100.1400 40-54 % Normal HCT 42.6 LAB L100.1500 80-94 fL Normal MCV 89.7 LAB L100.1600 27.0-32.0 pg Normal MCH 29.5 LAB L100.1700 32-36 g/gl Normal MCHC 32.9 LAB L100.1810 11.6-14.6 % Normal RDW CV 13.8 LAB L100.1820 35.1-43.9 fl High RDW SD 45.4 LAB L100.1900 150-450 K/mm3 Normal PLT 204 LAB L100.2000 6.2-12.0 fl Normal MPV 10.6 LAB L100.2100 47-70 % Normal NEUT% 63.7 LAB L100.2200 19-41 % Normal LY% 25.3 LAB L100.2300 0-10 % Normal MONO% 8.7 LAB L100.2400 0-5 % Normal EO% 1.7 LAB L100.2500 0-1 % Normal BASO% 0.3 LAB L100.2550 0.0-0.9 % Normal IM GRAN % 0.300 Result Comment: IG% - Immature Granulocytes (promyelocytes, myelocytes and metamyelocytes) > 1% indicates that a LEFT SHIFT is Present. LAB L100.2620 2.0-7.7 X10 3/uL Normal Absolute Neut 4.1 LAB L100.2720 0.83-4.51 X10 3/ul Normal Absolute Lymph 1.63 Performed By: #### L100.0100 #### [facility] [address] [place], [address] BASIC METABOLIC Collected: 01/07/2018 Status: F Source: SINDY PROFILE (BMP) 2:55 PM [facility] TYPE CODE TESTS RESULT OUT OF RANGE REFERENCE UNITS LAB L501.0100 74-106 mg/dL Normal GLU 95 Result Comment: Please note revised GLUCOSE reference range effective 2017. LAB L501.1000 7-18 mg/dL Normal BUN 12 LAB L501.1100 0.70-1.30 mg/dL Normal CREAT,SERUM 0.87 Result Comment: The validity of the calculated GFR AND GFRAA in patients over 70 years has not been determined. Clinical correlation is essential. LAB L501.1110 >60 mL/min Normal EST GFR 99 Result Comment: Non- GFR Calc LAB L501.1115 >60 mL/min Normal EST GFR - AA 120 Result Comment: GFR Calc LAB L501.1255 ml/min Normal Estimated CRCL 106.05 LAB L501.1300 10-20 RATIO BUN/CRE Normal 13.8 LAB L501.2200 8.5-10 mg/dL Low .1 CA 8.4 LAB L501.5300 136-14 mmol/L 5 NA Normal 139 LAB L501.5600 3.5-5. mmol/L 1 K Normal 4.0 LAB L501.5900 98-107 mmol/L CL Normal 106 LAB L501.6100 21.0-3 mmol/L 2.0 CO2 Normal 24.0 LAB L501.6200 5-15 GAP Normal 9 Performed By: #### L500.2500, L501.4010 #### [facility] [address] [place], [address] TROPONIN-I Collected: 01/07/2018 Status: F Source: [place] 2:55 PM [facility] TYPE CODE TESTS RESULT OUT OF RANGE REFERENCE UNITS LAB L501.4010 <0.045 ng/mL Normal 0.028 TROPONIN-I Result Comment: TROPONIN-I EXPECTED VALUES <0.045 Negative 0.045 - 0.590 Consistent with Cardiac Damage > OR = 0.600 Critical Value Not every elevated troponin is indicative of NE. These values should be used with clinical judgement in examining the patient's clinical picture for diagnosis. To establish a diagnosis of NE versus myocardial injury, there must be a demonstrated rise and/or fall in the troponin values, in addition to ischemic symptoms, EKG changes, new regional wall motion abnormality, and/or angiographical evidence. PLEASE NOTE: REFERENCE RANGES EDITED 17 Performed By: #### L500.2500, L501.4010 #### [facility] [address] [place], [address] CHEST 1 VIEW Observed: 01/07/2018 Status: F Source: SINDY (PORTABLE) 2:40 PM [facility] REPOSITORY [facility] Imaging Services [address] [place] [address] Chest 1 View (Portable) MR#: [id number] Acct: [id number] Name: MARCO ABEL Rep #: [id number] : 1970 M 47 From: Nando Pacheco MD PCP: Pinky Blevins MD Status: REG ER Study: Chest 1 View (Portable) Date of Exam: 01/07/18 Exam# [id number] Ordering Dr: Casey Tang MD STUDY: X-RAY CHEST REASON FOR EXAM: Male, 47 years old. Chest pain TECHNIQUE: Single frontal view of the chest. COMPARISON: March 23, 2012 FINDINGS: The lungs are clear and expanded. There is no demonstrated pleural abnormality. Normal size heart. Normal mediastinum and ora. Normal visualized pulmonary arteries. Normal visualized aortic arch and descending thoracic aorta. Normal visualized thoracic spine. Normal visualized ribs, clavicles, and shoulders. There is no demonstrated abnormality of the visualized soft tissue structures of the upper abdomen. RAD/Chest 1 View (Portable) IMPRESSION: Normal x-ray examination of the chest. Electronically Signed: Nando Pacheco MD at 15:49 EST , Service support , CC: MD Fang Tang; Pinky Blevins MD Cellar Packer: Signed PROGRESS Observed: 12/06/2017 Status: COMPLETED Source: SEWARD 1:45 PM [facility] REPOSITORY HNO ID: [id number] Author: Maribeth Dickson (Sw) Service: (none) Author Type: Cancer Program Coordinator Type: Progress Notes Filed: 12/06/2017 1:57 PM Note Text: Patient stopped to see Sw for assistance with [place] Medicaid. Sw and patient called [place] Medicaid Shared Services number to see if patient could be eligible for [place] Medicaid. Patient noted that he and girlfriend have been together for 30 years and have filed taxes together due to govt recognizing them as common law marriage. They have never actually . Medicaid rep requests that patient send yearly tax forms in to [employer] along with significant other check stubs. Patient is not currently working. Patient will send in tax forms along with check stubs to if could be eligible for Medicaid. COMP METABOLIC PANEL Collected: 12/06/2017 Status: F Source: SEWARD 9:45 AM [facility] [place] REPOSITORY TYPE CODE TESTS RESULT OUT OF REFERENCE UNITS RANGE LAB TP 6.3-8.0 g/dL Protein, Total 6.8 LAB ALB 3.9-4.9 g/dL Albumin 4.1 LAB CA 8.5-10.2 mg/dL Calcium, Total 9.1 LAB TBIL 0.2-1.3 mg/dL Low Bilirubin, Total <0.2 LAB ALKP 38-113 U/L Alkaline Phosphatase 80 LAB AST 14-40 U/L AST 25 LAB GLU 74-99 mg/dL Glucose High 106 Result Comment: The [place] [employer] (ADA) provides guidance for cutoff values for fasting glucose and random glucose. The ADA defines fasting as no caloric intake for at least 8 hours. Fas ting plasma glucose results between 100 to 125 mg/dL indicate increased risk for diabetes (prediabetes). Fasting plasma glucose results greater than or equal to 126 mg/dL meet the criteria for diagnosis of diabetes. In the absence of unequivocal hyperglycemia, results should be confirmed by repeat testing. In a patient with classic symptoms of hyperglycemia or hyperglycemic crisis, random plasma glucose results greater than or equal to 200 mg/dL meet the criteria for diagnosis of diabetes. Reference: Standards of Medical Care in Diabetes 2016, [place] [employer] Association. Diabetes Care. 2016.39(Suppl 1). LAB BUN 9-24 mg/dL BUN 14 LAB CRET 0.73-1.22 mg/dL Creatinine 0.98 LAB NA 136-144 mmol/L Sodium 140 LAB K 3.7-5.1 mmol/L Potassium 4.4 LAB CL 97-105 mmol/L Chloride 105 LAB CO2 22-30 mmol/L CO2 Low 21 LAB AGAP 9-18 mmol/L Anion Gap 14 LAB ALT 10-54 U/L ALT 41 LAB GFRAA eGFR- Amer. >60 LAB GFRNAA . eGFR-All Other Races >60 Result Comment: eGFR (Estimated GFR) Units of measure: mL/min/1.73 meters squared eGFR is derived from the reexpressed MDRD Study equation using the following parameters: serum creatinine, age, gender and race. The creatinine assay has been calibrated to be traceable to IDMS. An eGFR <60 mL/min/1.73m2 for >3 months is consistent with chronic kidney disease. Refer to KDOQI guidelines for clinical interpretation. In patients with unstable renal function, e.g. those with acute kidney injury, the eGFR may not accurately reflect actual GFR. Performed By: #### CMP, LIPB #### [facility] [address] [place], [place] [address] LIPID PANEL, BASIC Collected: 12/06/2017 Status: F Source: SEWARD 9:45 AM [facility] REPOSITORY TYPE CODE TESTS RESULT OUT OF REFERENCE UNITS RANGE LAB CHOL <200 mg/dL Cholesterol High 208 Result Comment: <200 mg/dL, Desirable 200-239 mg/dL, Borderline high >239 mg/dL, High LAB TRIGLY <150 mg/dL Triglyceride High 215 Result Comment: <150 mg/dL, Normal 150-199 mg/dL, Borderline high 200-499 mg/dL, High >499 mg/dL, Very high LAB HDL >39 mg/dL HDL-Cholesterol Low 25 Result Comment: 40-59 mg/dL, Acceptable >59 mg/dL, High: Negative risk factor for coronary heart disease <40 mg/dL, Low: Positive risk factor for coronary heart disease LAB LDL <100 mg/dL LDL-Cholesterol High 140 Result Comment: <100 mg/dL, Optimal 100-129 mg/dL, Near optimal/above optimal 130-159 mg/dL, Borderline high 160-189 mg/dL, High >189 mg/dL, Very high Secondary prevention optimal LDL Cholesterol levels are recommended to be < 70 mg/dL LAB NONHDL <130 mg/dL Non HDL High Cholesterol 183 Result Comment: <130 mg/dL, Optimal 130-159 mg/dL, Near optimal/above optimal 160-189 mg/dL, Borderline high 190-219 mg/dL, High >219 mg/dL, Very high Secondary prevention optimal non HDL Cholesterol levels are recommended to be < 100 mg/dL LAB FT hrs Fasting Time 14 LAB VLDL <30 mg/dL High VLDL Cholesterol 43 LAB TCHDL <5.10 High TC:HDL Ratio 8.32 LAB LDLHDL <2.54 High LDL:HDL Ratio 5.60 Result Comment: Reference: 1. National Cholesterol Education Program ATP III Guideline At-A-Glance Quick Desk Reference: National Heart, Lung, and Blood Basye. National Institutes of Health. 2001: NIH Publication No. 01-3305. 2. An International Atherosclerosis Society position paper: global recommendations for the management of dyslipidemia: executive summary, Atherosclerosis. 2014: 232(2):410-413. Performed By: #### CMP, LIPB #### [facility] [address] [place], [place] [address] CNSW Observed: 12/06/2017 Status: COMPLETED Source: [place] 12:00 AM [facility] REPOSITORY Social Work (HOWIEWST) MARCO ABEL ([id number]) 1970 M Date Time Provider Department 12/06/17 MARIBETH DICKSON (MARGARITA) LORENZO During your visit today, we recorded the following information about you: LORENA Lamb-SALES REPRESENTATIVE [facility] 12/06/2017 1:57 PM Signed Patient stopped to see for assistance with [place] Medicaid. Sw and patient called [place] Medicaid Shared Services number to see if patient could be eligible for [place] Medicaid. Patient noted that he and girlfriend have been together for 30 years and have filed taxes [facility] them as common law marriage. They have never actually . Medicaid rep requests that patient send yearly tax forms in to S along with significant other check stubs. Patient is not currently working. Patient will send in tax forms along with check stubs to if could be eligible for Medicaid. Allergies As of Date: 12/06/2017 Noted Allergy Reaction CITALOPRAM 05/12/2012 14 - Other: See Comments Comments: Chest discomfort PENICILLINS 03/04/2012 11 - Vomiting Date Reviewed: 03/14/2017 Reviewed by: Laurie Almazan LPN - Fully Assessed Prescriptions as of 12/06/2017 Sig: HYDROXYZINE PAMOATE 25 MG CAP* Take 1 capsule by mouth three* BUSPIRONE 10 MG TABLET 1.5 po at noon, 2 po in am an* Problem List As Of Date 12/06/2017 Noted Resolved Hyperlipidemia [E78.5] INVALID FOR* Impingement syndrome of left shoulder [M75.42] INVALID FOR*04/01/2016 Anxiety [F41.9] INVALID FOR* Encounter Status:Closed by MARIBETH HERNANDEZ on 12/06/17 PROGRESS Observed: 12/05/2017 Status: COMPLETED Source: [place] 11:12 AM [facility] REPOSITORY HNO ID: [id number] Author: Sheree Whitley) Ford Service: (none) Author Type: Nurse Practitioner Type: Progress Notes Filed: 12/05/2017 5:18 PM Note Text: This is a 47 year old male who presents today with: Patient presents with: Anxiety Imm/Inj: Flu Vaccine HISTORY OF PRESENT ILLNESS: Marco Abel is a 47 year old male. Patient presents with: Anxiety Imm/Inj: Flu Vaccine Pt presents today for medication check. Refers that he has no problems concerns. Anxiety Refers controlled with medication. States it is still there. Wishes it was gone. Can tell when he misses a dose of medication -- will get jittery. Uses the hydroxyzine maybe once a month or every other months. Arthritic hands Flares with weather changes. Has nodules on some of his knuckles. Had a rheum work-up years ago -- negative. REVIEW OF SYSTEMS GENERAL: No weight loss, malaise or fevers/chills HEENT: Negative for frequent or significant headaches, No changes in hearing or vision. NECK: Negative for lumps, goiter, pain and significant neck swelling RESPIRATORY: Negative for cough, hemoptysis, wheezing, dyspnea or shortness of breath CARDIOVASCULAR: Negative for chest pain, leg swelling, orthopnea, or palpitations GI: No nausea, vomiting, or diarrhea/constipation. No hematochezia/melena. Occasional heartburn. : No history of dysuria, frequency or incontinence MUSCULOSKELETAL: refers that the humidify really mess with arthritis of the hands. SKIN: Negative for lesions, rash, and itching ENDOCRINE: Negative for cold or heat intolerance, polyuria, polydipsia and goiter NEURO: No history of headaches, syncope, paralysis, seizures or tremors PAST MEDICAL HISTORY: PAST MEDICAL HISTORY Diagnosis Date - Heat stroke 2007 resolved - Hyperlipidemia - Palpitations PAST SURGICAL HISTORY Procedure Laterality Date - PAST SURGICAL HISTORY OF hernia repair, bilateral inguinal ALLERGIES Citalopram; Penicillins MEDICATIONS Current Outpatient Prescriptions: busPIRone (BUSPAR) 10 mg tablet 1.5 po in am and noon, 2 po at hs hydrOXYzine pamoate (VISTARIL) 25 mg capsule Take 1 capsule by mouth three times daily as needed. No current facility-administered medications for this visit. FAMILY HISTORY Problem Relation Age of Onset - other (rheumatoid arthritis [Other]) Mother - Hypertension Father Social History Marital status: Spouse name: Years of education: Number of children: Occupational History Occupation Employer Comment unemployed Social History Main Topics Smoking status: Current Every Day Smoker Packs/day: 1.50 Years: 25.00 Smokeless tobacco: Never Used Alcohol use: No Drug use: Yes Comment: hx of occasional marijuana, has stopped since admission to hospital EXAM: BP 126/68 Pulse 68 Resp 20 Wt 110.2 kg (243 lb) BMI 35.37 kg/m? PHYSICAL EXAM: General Appearance: Well appearing, alert, in no acute distress, well-hydrated, well nourished.. Skin: Skin color, texture, turgor normal, no suspicious rashes or lesions. Head: Normocephalic, no masses, lesions, tenderness or abnormalities. Eyes: Anicteric sclera. Pupils are equally round and reactive to light. Extraocular movements are intact. . Neck: Supple, no adenopathy; thyroid symmetric, normal size, no bruits. Lungs: Lungs clear to auscultation. No wheezing, rhonchi, rales. Heart: RRR without murmur, gallop, or rubs. No ectopy. Extremities: No deformities, edema, skin discoloration, clubbing or cyanosis. Good capillary refill . + osmani's nodes of DIPS. Neurologic: Gait normal. Reflexes normal and symmetric. Sensation grossly intact.. ASSESSMENT/PLAN: 1. Anxiety - ICD9: 300.00, ICD10: F41.9 (primary diagnosis) Controlled - BUSPIRONE 10 MG TABLET 2. Palpitation - ICD9: 785.1, ICD10: R00.2 Controlled -- refers a script of hydroxyzine lasts for a year. - HYDROXYZINE PAMOATE 25 MG CAPSULE 3. Need for vaccination - ICD9: V05.9, ICD10: Z23 - INFLUENZA VACCINE QUADRIVALENT AGE 3 YRS PLUS + IM 4. 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 Can use ibuprofen/aleve as needed. 5. Mixed hyperlipidemia - ICD9: 272.2, ICD10: E78.2 - to be determined upon return of lab results - LIPID PANEL BASIC - COMP METABOLIC PANEL Discussed treatment plan and patient voices understanding. Patient's questions answered appropriately. Medications and potential side effects were discussed and patient voices understanding. Return to the office as scheduled or as needed for worsening/no improvement. Sheree Youngblood APRN.PHARMACEUTICAL SERVICE REPRESENTATIVE PROGRESS Observed: 12/05/2017 Status: COMPLETED Source: [place] 10:46 AM [facility] REPOSITORY [facility] ID: [id number] Author: Robyn Argueta Ma Service: (none) Author Type: (none) Type: Progress Notes Filed: 12/05/2017 5:18 PM Note Text: 47 year old male here for INACTIVATED INFLUENZA VACCINE. 9243-8409 Season Patient is identified by name and date of : Yes [] CONTRAINDICATIONS color enhanced section Age less than 6 months? No Allergy to eggs, chicken, chicken feathers, or chicken dander? No Allergy to thimerosal (a preservative) or formaldehyde, gelatin? No History of severe reaction to any vaccine component or a previous dose of influenza vaccination? No History of Guillain-Everett Syndrome within 6 weeks after a previous influenza vaccine? No Patient is not moderately or severely ill? No Current temperature greater or equal to 100.4F? No History of Bone Marrow Transplant prior 6 months or solid organ transplant in the past 3 months ? No History of fainting after a prior injection or medical procedure? No- ? If patient has fainted in the past, the CDC recommends sitting or lying down for 15 minutes after the vaccination. [] VERIFICATION color enhanced section Was the answer Yes for any of the above contraindications? No contraindications present. Acceptable to proceed with vaccine. Patient/guardian agrees the above answers are true to the best of their knowledge? Yes Flu vaccine information sheet given? Yes See immunization activity in [facility] for details of immunizations adminstered today. Patient age: [age] year old For The 6570-6147 Flu Season 6-35 months old: Fluzone 0.25 ml - IM (Preservative Free) 3 years of age: Fluzone 0.5 ml - IM (Preservative Free) 3 years and older: Fluzone 0.5 ml- IM-(with Preservatives) 65+ years old: 2-49 years old Fluzone High-Dose 0.5 ml - IM (Preservative Free) FLUMIST- intranasal REMEMBER: If patient is less than 9 years of age and this is the first vaccine of Influenza to be received in any flu season, they should receive a second dose in one months time. CNOV Observed: 12/05/2017 Status: COMPLETED Source: [place] 10:00 AM [facility] REPOSITORY Office Visit (FAMPWS) MARCO ABEL ([id number]) 1970 M Date Time Provider Department 12/05/17 10:00 AM SHEREE YOUNGBLOOD ([facility]) FAMPWS During your visit today, we recorded the following information about you: Pulse Respiration Blood pressure Weight 68/minute 20/minute 126/68 110.2 kg Robyn Argueta Maciel 12/05/2017 5:18 PM Signed 47 year old male here for INACTIVATED INFLUENZA VACCINE. Season Patient is identified by name and date of : Yes [] CONTRAINDICATIONS color enhanced section Age less than 6 months? No Allergy to eggs, chicken, chicken feathers, or chicken dander? No Allergy to thimerosal (a preservative) or formaldehyde, gelatin? No History of severe reaction to any vaccine component or a previous dose of influenza vaccination? No History of Guillain-Everett Syndrome within 6 weeks after a previous influenza vaccine? No Patient is not moderately or severely ill? No Current temperature greater or equal to 100.4F? No History of Bone Marrow Transplant prior 6 months or solid organ transplant in the past 3 months ? No History of fainting after a prior injection or medical procedure? No- ? If patient has fainted in the past, the CDC recommends sitting or lying down for 15 minutes after the vaccination. [] VERIFICATION color enhanced section Was the answer Yes for any of the above contraindications? No contraindications present. Acceptable to proceed with vaccine. Patient/guardian agrees the above answers are true to the best of their knowledge? Yes Flu vaccine information sheet given? Yes See immunization activity in [facility] for details of immunizations adminstered today. Patient age: [age] year old For The 7960-9575 Flu Season 6-35 months old: Fluzone 0.25 ml - IM (Preservative Free) 3 years of age: Fluzone 0.5 ml - IM (Preservative Free) 3 years and older: Fluzone 0.5 ml- IM-(with Preservatives) 65+ years old: 2-49 years old Fluzone High-Dose 0.5 ml - IM (Preservative Free) FLUMIST- intranasal REMEMBER: If patient is less than 9 years of age and this is the first vaccine of Influenza to be received in any flu season, they should receive a second dose in one months time. Sheree Youngblood APRN.MARY 12/05/2017 5:18 PM Signed This is a 47 year old male who presents today with: Patient presents with: Anxiety Imm/Inj: Flu Vaccine HISTORY OF PRESENT ILLNESS: Marco Abel is a 47 year old male. Patient presents with: Anxiety Imm/Inj: Flu Vaccine Pt presents today for medication check. Refers that he has no problems concerns. Anxiety Refers controlled with medication. States it is still there. Wishes it was gone. Can tell when he misses a dose of medication -- will get jittery. Uses the hydroxyzine maybe once a month or every other months. Arthritic hands Flares with weather changes. Has nodules on some of his knuckles. Had a rheum work-up years ago -- negative. REVIEW OF SYSTEMS GENERAL: No weight loss, malaise or fevers/chills HEENT: Negative for frequent or significant headaches, No changes in hearing or vision. NECK: Negative for lumps, goiter, pain and significant neck swelling RESPIRATORY: Negative for cough, hemoptysis, wheezing, dyspnea or shortness of breath CARDIOVASCULAR: Negative for chest pain, leg swelling, orthopnea, or palpitations GI: No nausea, vomiting, or diarrhea/constipation. No hematochezia/melena. Occasional heartburn. : No history of dysuria, frequency or incontinence MUSCULOSKELETAL: refers that the humidify really mess with arthritis of the hands. SKIN: Negative for lesions, rash, and itching ENDOCRINE: Negative for cold or heat intolerance, polyuria, polydipsia and goiter NEURO: No history of headaches, syncope, paralysis, seizures or tremors PAST MEDICAL HISTORY: PAST MEDICAL HISTORY Diagnosis Date - Heat stroke 2008 resolved - Hyperlipidemia - Palpitations PAST SURGICAL HISTORY Procedure Laterality Date - PAST SURGICAL HISTORY OF hernia repair, bilateral inguinal ALLERGIES Citalopram; Penicillins MEDICATIONS Current Outpatient Prescriptions: busPIRone (BUSPAR) 10 mg tablet 1.5 po in am and noon, 2 po at hs hydrOXYzine pamoate (VISTARIL) 25 mg capsule Take 1 capsule by mouth three times daily as needed. No current facility-administered medications for this visit. FAMILY HISTORY Problem Relation Age of Onset - other (rheumatoid arthritis [Other]) Mother - Hypertension Father Social History Marital status: Spouse name: Years of education: Number of children: Occupational History Occupation Employer Comment unemployed Social History Main Topics Smoking status: Current Every Day Smoker Packs/day: 1.50 Years: 25.00 Smokeless tobacco: Never Used Alcohol use: No Drug use: Yes Comment: hx of occasional marijuana, has stopped since admission to hospital EXAM: BP 126/68 Pulse 68 Resp 20 Wt 110.2 kg (243 lb) BMI 35.37 kg/m? PHYSICAL EXAM: General Appearance: Well appearing, alert, in no acute distress, well-hydrated, well nourished.. Skin: Skin color, texture, turgor normal, no suspicious rashes or lesions. Head: Normocephalic, no masses, lesions, tenderness or abnormalities. Eyes: Anicteric sclera. Pupils are equally round and reactive to light. Extraocular movements are intact. . Neck: Supple, no adenopathy; thyroid symmetric, normal size, no bruits. Lungs: Lungs clear to auscultation. No wheezing, rhonchi, rales. Heart: RRR without murmur, gallop, or rubs. No ectopy. Extremities: No deformities, edema, skin discoloration, clubbing or cyanosis. Good capillary refill . + osmani's nodes of DIPS. Neurologic: Gait normal. Reflexes normal and symmetric. Sensation grossly intact.. ASSESSMENT/PLAN: 1. Anxiety - ICD9: 300.00, ICD10: F41.9 (primary diagnosis) Controlled - BUSPIRONE 10 MG TABLET 2. Palpitation - ICD9: 785.1, ICD10: R00.2 Controlled -- refers a script of hydroxyzine lasts for a year. - HYDROXYZINE PAMOATE 25 MG CAPSULE 3. Need for vaccination - ICD9: V05.9, ICD10: Z23 - INFLUENZA VACCINE QUADRIVALENT AGE 3 YRS PLUS + IM 4. 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 Can use ibuprofen/aleve as needed. 5. Mixed hyperlipidemia - ICD9: 272.2, ICD10: E78.2 - to be determined upon return of lab results - LIPID PANEL BASIC - COMP METABOLIC PANEL Discussed treatment plan and patient voices understanding. Patient's questions answered appropriately. Medications and potential side effects were discussed and patient voices understanding. Return to the office as scheduled or as needed for worsening/no improvement. MARIELY Marie APRN.CNP 12/05/2017 11:31 AM Signed 1. Continue the same medications. 2. Fasting labs (10-12 hours). 3. Recheck in 6 months. Referring Provider: SELF [200] Allergies As of Date: 12/05/2017 Noted Allergy Reaction CITALOPRAM 05/12/2012 14 - Other: See Comments Comments: Chest discomfort PENICILLINS 03/04/2012 11 - Vomiting Date Reviewed: 03/14/2017 Reviewed by: Laurie Almazan LPN - Fully Assessed Reason for Visit: Anxiety [9] Imm/Inj [58] Cmt: Flu Vaccine Reason For Visit History Recorded Primary Visit Diagnosis:Anxiety [F41.9] Other Visit Diagnoses:Palpitation [R00.2] Need for vaccination [Z23] Osmani's node [M15.2] Mixed hyperlipidemia [E78.2] Order(s):hydrOXYzine pamoate (VISTARIL) 25 mg capsuleTake 1 capsule by mouth three times daily as needed.Disp: 30 capsuleRfl: 1 busPIRone (BUSPAR) 10 mg tablet1.5 po at noon, 2 po in am and at hsDisp: 165 tabletRfl: 1 INFLUENZA VACCINE QUADRIVALENT AGE 3 YRS PLUS + IM [[id number]] Order #: [id number] LIPID PANEL BASIC [SQLIPB] Order #: [id number] FUTURE COMP METABOLIC PANEL [SQCMP] Order #: [id number] FUTURE Prescriptions as of 12/05/2017 Sig: HYDROXYZINE PAMOATE 25 MG CAP* Take 1 capsule by mouth three* BUSPIRONE 10 MG TABLET 1.5 po at noon, 2 po in am an* Problem List As Of Date 12/05/2017 Noted Resolved Hyperlipidemia [E78.5] INVALID FOR* Impingement syndrome of left shoulder [M75.42] INVALID FOR*04/01/2016 Anxiety [F41.9] INVALID FOR* Other instructions from your clinician: 1. Continue the same medications. 2. Fasting labs (10-12 hours). 3. Recheck in 6 months. Prescriptions ordered this encounter Disp Refills Start End HYDROXYZINE PAMOATE 25 MG CAPSULE 30 c* 1 12/05/2017 Route: ORAL Sig: Take 1 capsule by mouth three times daily as needed. BUSPIRONE 10 MG TABLET 165 * 1 12/05/2017 Si.5 po at noon, 2 po in am and at hs Medications Discontinued During This Encounter hydrOXYzine pamoate (VISTARIL) 25 mg* 30 c* 2 04/22/2016 12/05/2017 Route: ORAL Sig: Take 1 capsule by mouth three times daily as needed. Disc: Reason for discontinue is not on file. busPIRone (BUSPAR) 10 mg tablet 150 * 0 11/07/2017 12/05/2017 Si.5 po in am and noon, 2 po at hs Disc: Reason for discontinue is not on file. Encounter Status:Closed by SHEREE YOUNGBLOOD CNP on 12/05/17 ALLERGIES ALLERGIES DATE TYPE / CODE NAME / CODE REACTION SEVERITY SOURCE 01/18/2018 Drug Penicillins/[id number] Upset Stomach Unknown [place] Allergy/416 0476(RXNORM) [facility] 627993([facility] ED CT) Repository 01/18/2018 Drug citalopram/[id number] Unknown [place] Allergy/416 106(RXNORM) [facility] 598420([facility] ED CT) Repository 05/12/2012 DRUG CITALOPRAM OTHER: SEE C [facility] INGREDI/419 [facility] 389649(SNOM Repository ED CT) 03/04/2012 Drug PENICILLINS Vomiting [facility] Class/886[address] [facility] [place] 1003(SNOMED Repository CT) ENCOUNTERS ENCOUNTERS ADMIT/DISCHARGE ACCOUNT ADMITTING ENCOUNTER LOCATION SOURCE NUMBER CLASS 02/15/2018 [id number] Ambulatory [facility] ing:[facility] Repository 02/15/2018 [id number] Ambulatory BMSBuilding:W [facility] Repository 01/31/2018/02/02/20 [id number] Ambulatory [address] Repository 01/18/2018/01/19/20 [id number] Ambulatory BMSBuilding:Meg Callahan 16 [address] Repository 01/17/2018/01/19/20 [id number] Ambulatory [address] Repository 01/13/2018/01/14/20 [id number] Ambulatory [address] Repository 01/13/2018 [id number] Ambulatory BMSBuilding:Meg Callahan MS.[facility] Repository 01/12/2018/01/14/20 [id number] Ambulatory [address] Repository 01/11/2018/01/12/20 [id number] Ambulatory [address] Repository 01/10/2018/01/12/20 [id number] Ambulatory [address] Repository 01/07/2018/01/08/20 [id number] Emergency [place] Sindy [address] [place] [address] ing:ED Repository 12/06/2017/12/07/19 [id number] Ambulatory [address] Repository 12/05/2017/12/07/19 [id number] Ambulatory [address] Repository PAYERS PAYERS ENCOUNTER GUARANTOR PAYER SUBSCRIBER SOURCE 02/15/2018 MARCO [facility] NOT GIVENUNK Sindy [id number] [place] Insurance:SELF PAY [facility] [address]Rfl: Number: Effective Repository Date:2018-01-18 () 02/15/2018 MARCO [facility] Primary NOT GIVENUNK Sindy [id number] [place] Insurance:SELF PAY [facility] [place] [id number]: Number: Effective Repository Date:2018-02-15 () 01/18/2018 MARCO Georges Primary NOT GIVENUNK Sindy [id number] [place] Insurance:SELF PAY [facility] [place] [id number]: Number: Effective Repository Date:2018-01-18 () 01/13/2018 MARCO Georges Primary NOT GIVENUNK Sindy [id number] [place] Insurance:SELF PAY [facility] [address]Aas: Number: Effective Repository Date:2018-01-13 () 01/07/2018 MARCO Georges Primary NOT GIVENUNK [place] [id number] [place] Insurance:SELF PAY [facility] [place] [id number]: Number: Effective Repository Date:2018-01-07 ()
== END ==
PROVIDERS: Family Provider Family Medicine; PCP Family Medicine; Referring Provider Internal Medicine Cardiovascular Disease; Visit Provider Internal Medicine Cardiovascular Disease
DX: R94.31 Abnormal electrocardiogram [ECG] [EKG] (principal); R07.9 Chest pain, unspecified
CPT/HCPCS: 78452; 93017; A9500; A4216

== ENCOUNTER 2020-05-05 16:02 | Emergency (ER) | payer SELFPAY ==
[2018-01-18 12:33] VITALS: BMI 34.8
[2020-05-05 16:03] VITALS: BP 150/93; PULSE 89; RESP 15; TEMP 36.3; O2SAT 98; BMI 35.3
--- NOTE | 2020-05-05 16:49 | CT_ITS ---
STUDY: CT ABDOMEN AND PELVIS WITH CONTRAST REASON FOR EXAM: Male, 49 years old. Colitis RADIATION DOSAGE (If Supplied By Facility): CTDIvol = ( 14.79 ) mGy, DLP = ( 1210.60 ) mGycm TECHNIQUE: Transaxial images were obtained from the dome of the diaphragm to the symphysis pubis without oral contrast. IV 100mL Isovue-300 was administered. Sagittal and coronal images were reconstructed. Individualized dose optimization techniques were used for this CT. COMPARISON: None. FINDINGS: The visualized lung bases are unremarkable. The visualized portions of the heart are within normal limits. There is hepatomegaly with diffuse hepatic enlargement. Normal gallbladder and extrahepatic biliary system. Normal spleen. Normal pancreas. There is a small, circumscribed, smooth, low attenuation right adrenal mass, consistent with an adrenal adenoma. Normal left adrenal gland. There is 1.6 cm cyst of the right kidney. Normal left kidney. Normal visualized stomach. Normal small intestine. There is diverticulosis, with thickening of the colon wall, and pericolonic inflammation changes consistent with acute diverticulitis. The appendix is visualized and appears normal. There is diffuse atherosclerotic calcification of the abdominal aorta, without a demonstrated aneurysm. Normal inferior vena cava. Normal retroperitoneum. Normal urinary bladder. There is no free fluid in the abdomen or pelvis. Normal abdominal wall. There is mild degenerative change of the spine CT/Abdomen/Pelvis W IV Cont ONLY IMPRESSION: Sigmoid diverticulitis. No obstruction or abscess. Hepatomegaly. No biliary dilatation. Electronically Signed: Rickey Kimball MD at 18:32 EST , Service support ,
--- NOTE | 2020-05-05 16:49 | ED.VIS.GEN ---
History of Present Illness Chief Complaint: GI Bleed Informant: Patient, Family Narrative: 49-year-old male presenting for the evaluation of bloody mucus stools of 1 day duration. He reports about a week and a half ago he had diarrhea on Tuesday and Tuesday and began to feel better and returned to normal by Tuesday. This past Tuesday he states that he again had some diarrhea which improved. He had 5 pieces of pizza last pm and today was feeling bloated with increased gas. During an episode of flatus he had an accident. He states there was mucus and blood in his underwear. He reports that many years ago he had an episode of hemorrhoidal bleeding that resolved. He never had colonoscopy. He denies any weight loss but notes weight gain. No history of diverticulosis. He denies any pencil thin stools. No rectal pain. No nausea vomiting. No fever. He has no personal history of inflammatory bowel conditions. - Past Medical History (1) Hyperlipidemia Status: Chronic (2) Obesity Status: Chronic Past Medical History - Allergies and Home Meds Allergies/Adverse Reactions: Allergies citalopram Allergy (Intermediate, Verified 05/05/20 16:04) Unknown Penicillins Adverse Reaction (Verified 05/05/20 16:04) Upset Stomach Primary Care Physician: Kyle Blevins MD [Primary Care Provider] - Past Medical History: - - Anxiety Surgical History: herniorrhaphy Lives: Spouse/ Significant Other Smoking Status: Current every day smoker Drugs: None Review of Systems General: Reports: - - Weight gain. Denies: Chills, Fever, Sweats Eyes: Denies: Visual changes - bilaterally, Diplopia ENT: Denies: Rhinorrhea, Sore throat Cardiovascular: Denies: Chest pain, Palpitations Respiratory: Denies: Dyspnea, Cough, Dyspnea on exertion Gastrointestinal: Reports: Abdominal pain, Hematochezia, - - Abdominal bloating. Denies: Nausea, Vomiting, Diarrhea, Constipation, Melena Genitourinary: Denies: Dysuria, Hematuria, Frequency Musculoskeletal: Denies: Back pain, Extremity Pain Skin: Denies: Rash, Wounds Neurological: Denies: Headache, Weakness, Numbness Physical Exam Vital Signs/Narrative: Vital Signs Temp Pulse Resp BP Pulse Ox 05/05/20 16:03 97.3 F L 89 15 150/93 H 98 Inital Vital Signs reviewed: Yes General: Well nourished, Well developed, No Acute Distress Head: Normocephalic, Atraumatic Eyes: Perrl, EOMI ENT: Moist mucous membranes, No rhinorrhea Neck: Supple, Nontender Cardiovascular: Regular rate, Regular rhythm, No murmurs Respiratory: No distress, CTA bilaterally, Chest nontender Abdomen: Soft, Nontender, Nondistended, Normal bowel sounds Back: Nontender, Normal Inspection Extremities: Nontender, No edema Skin: Normal color, No rash Neurological: Alert, Oriented x3, Cranial nerves II-XII grossly intact, Normal Strength, Normal Sensation Psychological: Normal affect, Normal Mood Diagnostic/Tx/Re-eval Clinical Impression(s) from Imaging Studies Abdomen/Pelvis CT 05/05/20 16:49 IMPRESSION: Sigmoid diverticulitis. No obstruction or abscess. Hepatomegaly. No biliary dilatation. Electronically Signed: Rickey Kimball MD at 18:32 EST , Service support , Laboratory Last Values WBC 11.0 K/mm3 (4.4-11.0) 05/05/20 17:10 RBC 4.97 M/mm3 (4.6-6.2) 05/05/20 17:10 Hgb 14.5 g/dL (13.0-16.5) 05/05/20 17:10 Hct 44.9 % (40-54) 05/05/20 17:10 MCV 90.3 fL (80-94) 05/05/20 17:10 MCH 29.2 pg (27.0-32.0) 05/05/20 17:10 MCHC 32.3 g/dL (32-36) 05/05/20 17:10 RDW Std Deviation 43.1 fl (35.1-43.9) 05/05/20 17:10 RDW Coeff of Joy 13.2 % (11.6-14.6) 05/05/20 17:10 Plt Count 253 K/mm3 (150-450) 05/05/20 17:10 MPV 10.2 fl (6.2-12.0) 05/05/20 17:10 Immature Gran % (Auto) 0.500 % (0.0-0.9) 05/05/20 17:10 Neut % (Auto) 74.3 % (47-70) H 05/05/20 17:10 Lymph % (Auto) 18.8 % (19-41) L 05/05/20 17:10 Mcmullen % (Auto) 5.4 % (0-10) 05/05/20 17:10 Eos % (Auto) 0.5 % (0-5) 05/05/20 17:10 Baso % (Auto) 0.5 % (0-1) 05/05/20 17:10 Absolute Neuts (auto) 8.2 X10^3/uL (2.0-7.7) H 05/05/20 17:10 Absolute Lymphs (auto) 2.07 X10^3/uL (0.83-4.51) 05/05/20 17:10 Nucleated RBC % 0 % (0-5) 05/05/20 17:10 Sodium 140 mmol/L (136-145) 05/05/20 17:10 Potassium 3.9 mmol/L (3.5-5.1) 05/05/20 17:10 Chloride 106 mmol/L (98-107) 05/05/20 17:10 Carbon Dioxide 27.0 mmol/L (21.0-32.0) 05/05/20 17:10 Anion Gap 7 (5-15) 05/05/20 17:10 BUN 12 mg/dL (7-18) 05/05/20 17:10 Creatinine 0.98 mg/dL (0.70-1.30) 05/05/20 17:10 Estim Creat Clear Calc 89.18 ml/min 05/05/20 17:10 Est GFR (MDRD) Af Amer 104 mL/min (>60) 05/05/20 17:10 Est GFR (MDRD) Non-Af 86 mL/min (>60) 05/05/20 17:10 BUN/Creatinine Ratio 12.3 RATIO (10-20) 05/05/20 17:10 Glucose 89 mg/dL (74-106) 05/05/20 17:10 Calcium 9.1 mg/dL (8.5-10.1) 05/05/20 17:10 Total Bilirubin 0.30 mg/dL (0.20-1.00) 05/05/20 17:10 AST 18 U/L (15-37) 05/05/20 17:10 ALT 44 U/L (16-61) 05/05/20 17:10 Alkaline Phosphatase 98 U/L (45-117) 05/05/20 17:10 Total Protein 7.9 g/dL (6.4-8.2) 05/05/20 17:10 Albumin 3.9 g/dL (3.2-5.0) 05/05/20 17:10 Globulin 4.0 g/dL (2.2-4.2) 05/05/20 17:10 Albumin/Globulin Ratio 1.0 RATIO (0.9-2.4) 05/05/20 17:10 Lipase 103 U/L (73-393) 05/05/20 17:10 - Medical Decision Making Count is 11. CT the abdomen pelvis demonstrates sigmoid diverticulitis without abscess or perforation. The patient will be started on Cipro and Flagyl. He was encouraged to have a follow-up colonoscopy. He will talk to his doctor. ED Disposition - Plan for ED Patient: Disposition: Home or Assisted Living Diagnosis: Sigmoid diverticulitis Instructions: ED Diverticulitis Prescriptions: Ciprofloxacin [Cipro] 500 mg PO BID #20 tab Transmission Status: Pending to [facility] metroNIDAZOLE [Flagyl] 500 mg PO Q8H #30 tab Transmission Status: Pending to [id number] Referrals: Kyle Blevins MD [Primary Care Provider] - 1-2 Weeks
[2020-05-05 17:20] LABS: Absolute Lymphocyte Count 2.07 X10^3/uL (0.83-4.51); Absolute Neutrophil Count 8.2 X10^3/uL (2.0-7.7); Basophil# 0.05 X10^3/uL; Basophil% 0.5 % (0-1); Eosinophil# 0.06 X10^3/uL; Eosinophils% 0.5 % (0-5); Hematocrit 44.9 % (40-54); Hemoglobin 14.5 g/dL (13.0-16.5); Lymphocyte # 2.07 X10^3/ul (4.0); Lymphocyte % 18.8 % (19-41); Mean Corp Hgb Conc 32.3 g/dL (32-36); Mean Corpuscular Hgb 29.2 pg (27.0-32.0); Mean Corpuscular Volume 90.3 fL (80-94); Mean Platelet Vol. 10.2 fl (6.2-12.0); Monocyte% 5.4 % (0-10); NRBC Flagged by Analyzer 0 % (0-5); Neutrophil % 74.3 % (47-70); Platelet Count 253 K/mm3 (150-450); RBC Distribution Width CV 13.2 % (11.6-14.6); RBC Distribution Width SD 43.1 fl (35.1-43.9); Red Blood Count 4.97 M/mm3 (4.6-6.2)
[2020-05-05 17:34] LABS: AST(SGOT) 18 U/L (15-37); Alanine Aminotransfer ALT/SGPT 44 U/L (16-61); Albumin, Serum 3.9 g/dL (3.2-5.0); Alkaline Phosphatase 98 U/L (45-117); Anion Gap 7 (5-15); BUN 12 mg/dL (7-18); BUN/Creat Ratio 12.3 RATIO (10-20); Calcium,Total 9.1 mg/dL (8.5-10.1); Chloride 106 mmol/L (98-107); Creatinine, Serum 0.98 mg/dL (0.70-1.30); EST Glomerular Filtration Rate 86 mL/min (>60); Est Glom Filt Rate - Afr Amer 104 mL/min (>60); Estimated Creatinine Clearance 89.18 ml/min; Glucose 89 mg/dL (74-106); Lipase 103 U/L (73-393); Potassium 3.9 mmol/L (3.5-5.1); Protein, Total 7.9 g/dL (6.4-8.2); Sodium Level 140 mmol/L (136-145)
[2020-05-05 18:14] VITALS: BP 144/75; PULSE 73; RESP 18; O2SAT 98
== END 2020-05-05 18:57 | disposition home or self-care (01) ==
PROVIDERS: Emergency Provider Emergency Medicine; PCP Family Medicine
DX: K57.32 Diverticulitis of large intestine without perforation or abscess without bleeding (principal); E66.9 Obesity, unspecified; F41.9 Anxiety disorder, unspecified; Z79.899 Other long term (current) drug therapy; F17.200 Nicotine dependence, unspecified, uncomplicated
CPT/HCPCS: 74177; 80053; 83690; 85025; 99283; Q9967; A4216